=== PATIENT | male | born 1955 | race Caucasian/White ===

== ENCOUNTER 2023-02-09 11:23 | Outpatient (CLI) | payer MEDICARE, SELFPAY ==
--- NOTE | 2023-02-09 11:33 | MR_ITS ---
WS: [id number] MRI HEAD WITH CONTRAST TECHNIQUE: Sagittal T1, T2 axial, T2 axial FLAIR, axial susceptibility weighted imaging, axial diffus ion weighted images, and coronal T2 images were obtained. Pre and post-T1 axial and post T1 coronal i mages. ADC and FSPGR images. CLINICAL INFORMATION: R EYE ISCHEMIC OPTIC NEUROPATHY COMPARISON: None. FINDINGS: No evidence of restricted diffusion to suggest acute ischemia. Ventricular system and basal cisterns are patent. Minimal small vessel changes. Mild parenchymal volume loss. Normal posterior fossa. Dalila l vascular flow voids at the skull base. No evidence of mass or mass effect. Paranasal sinuses are we ll aerated. Mucosal thickening with inspissated secretions in the LEFT maxillary sinus. Mastoid air c ells are well aerated. Normal posterior nasopharynx. Normal optic chiasm and pituitary infundibulum. Mild to moderate symmetric atrophy temporal lobes and hippocampal formations. No evidence of optic nerve edema or enhancing optic neuritis. No abnormal gadolinium enhancement. Incidental benign enhancing venous angioma in the RIGHT parietal lobe. Normal enhancing dural venous sinuses. IMPRESSION: 1. No evidence of restricted diffusion to suggest acute ischemia. 2. No evidence of optic nerve edema or optic neuritis. 3. Minimal small vessel changes. Mild parenchymal volume loss. 4. Inspissated secretions in the LEFT maxillary sinus. 5. Benign enhancing venous angioma in the RIGHT parietal lobe. 6. Normal optic chiasm and pituitary infundibulum. 7. No other suspicious findings.
--- NOTE | 2023-02-09 11:33 | USCV_ITS ---
Grover Sina Age: 67 Gender: M : 1955 Exam Date: 02/09/2023 11:59 Ordering Phys: Yulia Arango Technologist: Tawana Calvillo Exam Location: [facility] – [place] Indication: Visual Disturbance Risk Factors: Unknown Previous Vascular Surgery: None Right Brachial BP: / Left Brachial BP: / Right Left Velocity (cm/s) Spectral Plaque Velocity (cm/s) Spectral Plaque Syst/Diast Broadening Syst/Diast Broadening 105.80/22.10 Prox CCA 101.20/ 27.60 129.00/28.70 Mid CCA 92.00 / 14.50 125.70/26.50 Hetro Distal CCA 114.40/ 15.80 Hetro 118.00/27.60 Hetro Prox ICA 85.40 / 30.20 Hetro 98.10/ 26.50 Mid ICA 89.40 / 18.40 88.20/ 28.70 Distal ICA 68.40 / 13.10 94.80 ECA 148.60 0.91 ICA/CCA 0.97 Antegrade Vertebral Antegrade 35.00/ 14.80 cm/s 44.70/ 18.40 cm/s Tri Subclavian Bi 151.2 197.9 0 0 CONCLUSIONS Right ICA stenosis <50%. Moderate calcified atheromatous plaque right carotid bulb/ICA. Left ICA stenosis 50-69%. Severe calcified atheromatous plaque left carotid bulb/ICA. Left ICA plaquea appears mobile. Normal antegrade Doppler flow noted in the right vertebral artery. Normal antegrade Doppler flow noted in the left vertebral artery. Gaurav Cruz MD (Electronically Signed) Final Date: 09 February 2023 16:47 S
[2023-02-09] MEDS: gadobenate dimeglumine 20 mL vial IV (14:00)
== END 2023-02-09 11:24 | disposition home or self-care (01) ==
PROVIDERS: PCP Physician Assistant; Visit Provider Physician Assistant
DX: H47.011 Ischemic optic neuropathy, right eye (principal); Q28.3 Other malformations of cerebral vessels; I65.23 Occlusion and stenosis of bilateral carotid arteries; H53.9 Unspecified visual disturbance
CPT/HCPCS: 70553; 93880; A9577

== ENCOUNTER 2024-04-23 14:04 | Inpatient (IN) | payer MEDICARE, SELFPAY ==
[2024-04-23] VITALS (8 sets, daily range): BP systolic 113–143; BP diastolic 62–72; PULSE 65–76; RESP 15–28; TEMP 36.9–37.2; O2SAT 72–92; BMI 38.2
--- NOTE | 2024-04-23 14:05 | XR_ITS ---
WS: [id number] Portable AP upright chest, 04/23/2024 Clinical Data: sob Comparison: None. Findings: There is a patchy opacity in the right upper lobe which could represent acute pneumonia. Th ere may be an opacity in the left lower lobe which could also represent pneumonia and/or atelectasis. The patient's breathing does obscure minimal detail. The heart size is at the upper limits of normal . No pneumothorax is seen. The pulmonary vascularity is not increased. There are no nodules or masses . XR/XR chest 1V portable [id number] Impression: Patchy opacities in the right upper lobe and probably left lower lobe which cou ld represent acute pneumonia.
--- NOTE | 2024-04-23 14:14 | ECG_ITS ---
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
[2024-04-23 14:37] LABS: Basophils # 0.1 10^3/uL (0.0-0.1); Basophils % 0.4 %; Eosinophils # 0.1 10^3/uL (0.0-0.8); Eosinophils % 0.4 %; Hematocrit 42.6 % (37-53); Lymphocytes # 1.8 10^3/uL (0.8-4.8); Lymphocytes % 11.9 %; Mean Corpuscular HGB Conc 31.9 g/dL (30-55); Mean Corpuscular Hemoglobin 30.7 pg (27-33); Mean Corpuscular Volume 96.2 fl (82-101); Mean Platelet Volume 10.3 fL (7.4-10.4); Monocytes # 1.5 10^3/uL (0.2-0.9); Monocytes % 9.4 %; Neutrophils # 11.91 10^3/uL (1.8-7.7); Neutrophils % 77.1 %; Nucleated Red Blood Cells # 0.1 /100WBC; Nucleated Red Blood Cells % 0.7 %; Platelet Count 355 10^3/cmm (157-399); Red Blood Count 4.43 10^6/uL (3.85-5.65); Red Cell Distribution Width 14.9 % (12.1-15.1); White Blood Count 15.45 10^3/uL (3.29-11.43)
[2024-04-23 14:38] LABS: ABG PCO2 51.2 mmHg (35-45); ABG PH Result 7.38 (7.35-7.45); Alveolar-Arterial Oxygen Gradi 20.8 mmHg (5-10); Arterial Blood Gas Hematocrit 43.6 % (42-52); Base Excess ABG 4.1 mmol/L (-2.0-2.0); Blood Gas Allen Test Pos; Blood Gas Operator Identificat glc; Blood Gas Sample Site Radial, right; Blood Gas Sample Type Arterial; Carboxyhemoglobin 2.4 %THgb (0.4-20.1); HCO3 ABG 30.4 mmol/L (22-26); Ionized Calcium Level - ABG 1.1 mmol/L (1.1-1.4); Methemoglobin 1.1 % (0.4-1.5); Oxygen Device NC; Oxygen Saturation ABG 90.1; PO2 ABG 63.2 mmHg (80.0-100.0); PO2 FiO2 Ratio Arterial Blood 158; Potassium Level - ABG 3.7 mmol/L (3.5-5.0); Total Hemoglobin 14.2 g/dL (14-18)
--- NOTE | 2024-04-23 14:44 | ED_ITS ---
HPI - SOB/Dyspnea 2 General: Chief Complaint: Shortness of Breath/Dyspnea Stated Complaint: sob,weak Time Seen by Provider: 04/23/24 14:23 Source: patient Mode of arrival: ambulatory Limitations: no limitations History of Present Illness: HPI Narrative: This patient was transported by private vehicle to the emergency department after being referred from an outpatient clinic. The patient states he has had progressive short of breath over the past many months but seemingly worse over the past few days. He has had a cough which seems to be unchanged from his prior cough. No known fevers or chills. No known exposure to infectious disease. Uses an albuterol inhaler on occasion but states it does not seem to help him much so he does not use it very often. He states he does not sleep well states he is never a slept well and does not attribute to any acute change in his respiratory issues. He states he cannot hardly do much in the way of activity without getting short of breath. He otherwise taking his all his other prescribed medications faithfully. He states he has been told he has asthma in the past. He does not currently smoke tobacco. No recent travel. No history of congestive heart failure or coronary artery disease that he is aware. States he has been decreasing his food intake recently in an attempt to lose weight. He has not had any seasonal immunizations this year. MD elicited complaint: shortness of breath and cough Associated symptoms: Deny abdominal pain, chest pain, extremity pain, fever(s), lightheadedness, nausea, palpitations, syncope or vomiting Related Data Home Medications Medication Instructions Recorded Confirmed acetaminophen 325 mg tablet 650 mg PO QID PRN Pain 04/23/24 04/23/24 (Tylenol) albuterol sulfate 90 mcg/actuation See Rx Instructions .Route .COMPLEX 04/23/24 04/23/24 aerosol inhaler allopurinol 100 mg tablet 200 mg PO DAILY 04/23/24 04/23/24 amlodipine 10 mg tablet 10 mg PO DAILY 04/23/24 04/23/24 aspirin 81 mg tablet,delayed 81 mg PO DAILY 04/23/24 04/23/24 release (Lola Low Dose Aspirin) atorvastatin 40 mg tablet 40 mg PO QPM 04/23/24 04/23/24 fenofibrate nanocrystallized 145 145 mg PO DAILY 04/23/24 04/23/24 mg tablet losartan 100 mg tablet 100 mg PO DAILY 04/23/24 04/23/24 metoprolol tartrate 50 mg tablet 25 mg PO BIDWM 04/23/24 04/23/24 nitroglycerin 0.4 mg sublingual See Rx Instructions .Route .COMPLEX 04/23/24 04/23/24 tablet pioglitazone 30 mg tablet 30 mg PO DAILY 04/23/24 04/23/24 Allergies Allergy/AdvReac Type Severity Reaction Status Date / Time No Known Allergies Allergy Verified 04/23/24 14:35 Review of Systems 2 Const: Denies: fever(s), chills or body aches Eyes: Denies: change in vision ENMT: Denies: throat pain, odynophagia, nasal discharge or nasal congestion Card: Denies: chest pain, palpitations, lightheadedness, syncope or pre- syncope Resp: Reports: dyspnea and non-productive cough GI: Denies: abdominal pain, nausea, vomiting or diarrhea : Denies: flank pain, difficulty urinating, dysuria or urinary frequency Musc: Denies: neck pain, back pain, extremity pain or extremity swelling Skin/Breast: Denies: rash, pruritus or erythema Neuro: Denies: headache(s), numbness in extremities or weakness in extremities Psych: Denies: anxiety Physical Exam 2 Narrative: EXAM NARRATIVE: Patient is awake and alert is able to converse in complete sentences but somewhat dyspneic with prolonged conversation. Const: COMMON NORMALS: patient oriented x3 and alert GENERAL APPEARANCE: c ooperative NUTRITIONAL APPEARANCE: obese HENMT: COMMON NORMALS: Normal nasal mucous membranes and turbinates present, moist oral mucous membranes and oropharynx normal FACE & SINUS: face symmetric NOSE: Normal nasal mucous membranes and turbinates present Eye: COMMON NORMALS: Equal, round and reactive pupils present, EOMs intact bilaterally and conjunctivae normal CONJUNCTIVA: Yes conjunctivae normal P UPIL: Yes Equal, round and reactive pupils present Neck/C-Spine: COMMON NORMALS: full ROM, supple, no JVD and No carotid bruits Chest: COMMONS NORMALS: normal inspection of the chest and normal palpation of entire chest wall Resp: COMMON NORMALS: No retractions and No use of accessory muscles A USCULTATION: crackles and diminished lung sounds Cardio: COMMON NORMALS: no JVD, regular rhythm, No murmurs present (Cardio) and Peripheral pulses 2+ throughout RHYTHM: regular rhythm PERIPHERAL PULSES: Peripheral pulses 2+ throughout GI: COMMON NORMALS: Normal to inspection, nondistended, normoactive bowel sounds present and Soft to palpation INSPECTION: Yes central obesity P ALPATION: Yes Soft to palpation : COMMON NORMALS: Yes no CVA tenderness BLADDER/KIDNEY EXAM: Yes no CVA tenderness Back/Pelvis: COMMON NORMALS: no CVA tenderness, thoracic and lumbar spine normal to inspection, no thoracic nor lumbar tenderness and thoraco-lumbar ROM normal Extremity: COMMON NORMALS: normal to inspection, full ROM, capillary refill normal, no calf tenderness and no pedal edema Neuro: COMMON NORMALS: patient oriented x3, moves all extremities, no focal motor deficits and no sensory deficits noted SENSORIUM/ORIENTATION: Yes alert Psych: COMMON NORMALS: mental status grossly normal Skin: COMMON NORMALS: no rashes or lesions noted, turgor normal and no jaundice GENERAL SKIN EXAM: no rashes or lesions noted and turgor normal Course 2 Reevaluation(s): Reevaluation #1: Patient on presentation was noted to have a pulse ox in the 70s which corrected to the low 90s with supplemental oxygen. Subsequent ABG revealed a pH of 7. 3 8 with a pCO2 of 51 and pO2 of 63 on approximately 35 to 40% FiO2 by nasal cannula. Carboxyhemoglobin level was 2.4%. Time: 14:50 Reevaluation #2: Patient's noted to have an elevated BNP. Also has evidence of elevated BUN/creatinine ratio but we do not have a baseline for his creatinine as we do not know the extent of his presumed GISSELLE. His low magnesium level will also be repleted Time: 15:32 Consultations: Consultation #1: Discussed with Dr. Sargent who agreed to admit patient Time: 15:10 Vital Signs: Vital signs: Vital Signs Temperature 98.5 F 04/23/24 14:23 Pulse Rate 65 04/23/24 15:03 Respiratory Rate 18 04/23/24 15:03 Blood Pressure 113/70 04/23/24 14:23 Pulse Oximetry 91 04/23/24 15:03 Oxygen Delivery Me thod Nasal Cannula 04/23/24 15:03 Oxygen Flow Rate 5 04/23/24 15:03 MDM - SOB/Dyspnea Medical Decision Making Patient presented as noted in history of present illness. Patient is currently oxygen requiring with chest x-ray showing right upper and right lower lobe infiltrates. No known history of coronary disease or congestive heart failure but does have a history of asthma given his current clinical presentation is strongly suggest community-acquired pneumonia but obviously as part of our differential would include occult CHF and possible ACS is initial EKG is reassuring. But we are including the usual ancillary studies to ensure that there is no other etiologies to his current presentation and oxygen requirement. Hospitalist have agreed to admit the patient to the hospital and the patient is agreeable to that plan of care. He is being given treatment for community- acquired pneumonia to include loading dose of antibiotics, steroids, albuterol and ipratropium breathing treatments. As his workup ensued it was noted that the had an elevation in his BUN/creatinine ratio consistent with possible GISSELLE although we do not know baseline creatinine for this patient. He also has an elevation in BNP as well as a slight elevation in his initial troponin without dynamic EKG changes these will obviously need to be trended to ensure that there is no evidence of acute myocardial injury. The numbers may be elevated on his biomarkers due to his GISSELLE as well although his BNP is more indicative of possible pulmonary congestion. Medical Records Patient does not have any records within the system. Lab Data I reviewed the patient's lab results. 04/23/24 14:27 04/23/24 14:27 Labs/Radiology: Radiology Impressions Chest X-Ray 04/23/24 14:05 Impression: Patchy opacities in the right upper lobe and probably left lower lobe which could represent acute pneumonia. Chest CT 04/23/24 15:07 IMPRESSION: 1. Multi lobar pneumonia. Most extensive pulmonary opacification and pneumonia is in the RIGHT upper lobe. Pneumonia continues into a portion of the RIGHT lower lobe with a few areas of scattered opacifications throughout the LEFT lung. Most consistent with pneumonia. Consider aspiration pneumonia. 2. Single subcarinal lymph node at 1.8 cm. The remaining lymph nodes are normal. This may be a reactive lymph node. 3. Mild cardiomegaly. Laboratory Results WBC 15.45 10^3/uL (3.29-11.43) H 04/23/24 14: RBC 4.43 10^6/uL (3.85-5.65) 04/23/24 14: Hgb 13.60 g/dL (11.27-16.99) 04/23/24 14: Hct 42.6 % (37-53) 04/23/24 14: MCV 96.2 fl (82-101) 04/23/24 14: MCH 30.7 pg (27-33) 04/23/24 14: MCHC 31.9 g/dL (30-55) 04/23/24 14: RDW 14.9 % (12.1-15.1) 04/23/24 14: Plt Count 355 10^3/cmm (157-399) 04/23/24 14: MPV 10.3 fL (7.4-10.4) 04/23/24 14: Neut % (Auto) 77.1 % 04/23/24 14: Lymph % (Auto) 11.9 % 04/23/24 14: [place] % (Auto) 9.4 % 04/23/24 14: Eos % (Auto) 0.4 % 04/23/24 14: Baso % (Auto) 0.4 % 04/23/24 14: Neut # (Auto) 11.91 10^3/uL (1.8-7.7) H 04/23/24 14: Lymph # (Auto) 1.8 10^3/uL (0.8-4.8) 04/23/24 14: [place] # (Auto) 1.5 10^3/uL (0.2-0.9) H 04/23/24 14: Eos # (Auto) 0.1 10^3/uL (0.0-0.8) 04/23/24 14: Baso # (Auto) 0.1 10^3/uL (0.0-0.1) 04/23/24 14: Nucleated RBC % (auto) 0.7 % 04/23/24 14: Nucleated RBCs # 0.1 /100WBC 04/23/24 14: Specimen Type Arterial 04/23/24 14:25 Sample Site Radial, right 04/23/24 14:25 ABG pH 7.38 (7.35-7.45) 04/23/24 14: ABG pCO2 51.2 mmHg (35-45) H 04/23/24 14: ABG pO2 63.2 mmHg (80.0-100.0) L 04/23/24 14:25 ABG PO2/FiO2 Ratio 158 04/23/24 14:25 ABG HCO3 30.4 mmol/L (22-26) H 04/23/24 14:25 ABG O2 Saturation 90.1 04/23/24 14:25 ABG Base Excess 4.1 mmol/L (-2.0-2.0) H 04/23/24 14:25 Khalif Test Pos 04/23/24 14:25 A-a O2 Gradient 20.8 mmHg (5-10) H 04/23/24 14:25 Hematocrit 43.6 % (42-52) 04/23/24 14:25 Hgb O2 Saturation 87.0 % (95-100) L 04/23/24 14:25 Carboxyhemoglobin 2.4 %THgb (0.4-20.1) 04/23/24 14:25 Methemoglobin 1.1 % (0.4-1.5) 04/23/24 14:25 Total Hemoglobin 14.2 g/dL (14-18) 04/23/24 14:25 Sodium 139.0 mmol/L (131-143) 04/23/24 14:25 Potassium 3.7 mmol/L (3.5-5.0) 04/23/24 14:25 Glucose 142.0 mg/dL (70-115) H 04/23/24 14:25 Ionized Calcium 1.1 mmol/L (1.1-1.4) 04/23/24 14:25 O2 Delivery Device Nc 04/23/24 14:25 O2 Liters/Min 5.0 % 04/23/24 14:25 FiO2 40.0 % 04/23/24 14:25 Warp Tying Machine Tender ID glc 04/23/24 14:25 Sodium 138 mmol/L (136-145) 04/23/24 14:27 Potassium 4.3 mmol/L (3.5-5.1) 04/23/24 14:27 Chloride 97 mmol/L (98-107) L 04/23/24 14:27 Carbon Dioxide 27 mmol/L (22-29) 04/23/24 14:27 Anion Gap 18.3 (5-19) 04/23/24 14:27 BUN 48 mg/dL (8-23) H 04/23/24 14:27 Creatinine 2.2 mg/dL (0.7-1.2) H 04/23/24 14:27 GFR Calculation 29.8 mL/min (90-130) L 04/23/24 14:27 Glucose 145 mg/dL (65-115) H 04/23/24 14:27 Calculated Osmolality 301 mOsm/kg (285-295) H 04/23/24 14:27 Calcium 8.4 mg/dL (8.5-10.5) L 04/23/24 14:27 Magnesium 1.5 mg/dL (1.7-2.3) L 04/23/24 14:27 Total Bilirubin 0.7 mg/dL (0.15-1.2) 04/23/24 14: AST 17 U/L (0-40) 04/23/24 14: ALT 19 U/L (0-41) 04/23/24 14: Alkaline Phosphatase 58 U/L (40-130) 04/23/24 14:27 Troponin T Baseline 60 ng/L (0-15) H 04/23/24 14:27 NT-Pro-B Natriuret Pep 4275 pg/mL (0-125) H 04/23/24 14:27 Total Protein 6.5 g/dL (6.6-8.7) L 04/23/24 14:27 Albumin 3.5 g/dL (3.5-5.2) 04/23/24 14:27 Globulin 3.0 g/dL (1.3-4.6) 04/23/24 14: TSH 1.99 uIU/mL (0.27-4.20) 04/23/24 14:27 All radiology interpretation(s) finalized by discharge EKG Data EKG 1: I personally reviewed and interpreted this EKG as follows: Interpretation: Contemporaneous review of resting EKG reveals ventricular rate of 67 bpm. S1 sinus rhythm. Normal MI interval, QRS duration, corrected QT interval. Normal axis. No acute ST-T wave changes noted at this time. 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
[2024-04-23] MEDS: AZITHROMYCIN ADD-Vantage 500 MG in 0.9% NaCl ADD-Vantage 250 ML 250 MG IV (14:58)
[2024-04-23] MEDS: cefTRIAXone 2,000 mg SDV 2000 MG IVP (14:59)
[2024-04-23] MEDS: methylPREDNISolone sod succ 125 mg/2 mL INJ 80 MG IVP (14:59)
[2024-04-23] MEDS: ipratropium-albuterol 3 mL Neb INHALATION ×2 (15:00→20:13)
--- NOTE | 2024-04-23 15:07 | CT_ITS ---
WS: [id number] CT chest wo con [id number] HISTORY: pneumonia TECHNIQUE: Axial imaging performed through the thorax. Coronal and sagittal reformats are submitted. All CT scans at [facility] use at least one of these dose optimization techniques: automated exposure control; mA and/or kV adjustment per patient size (includes targeted exams where dose is mat ched to clinical indication); or iterative reconstruction. CONTRAST: Omnipaque 350; 100 mL IV. DLP: 709.12 mGy.cm COMPARISON: Chest radiograph 04/23/2024 Lungs and central airway: Heterogeneous dense and subsolid consolidation predominantly in the RIGHT u pper lobe. Mild bulging of the fissures. Opacification extends into the RIGHT lower lobe and does spa re the RIGHT middle lobe. Linear opacifications at the LEFT lung base probably atelectasis or more lenz btle areas of pneumonia. There are few very subtle hazy attenuation surrounds the LEFT upper lobe. Pleura: Normal. No pleural effusion. Heart and pericardium: Heart is enlarged. Mediastinum and abebe: No definite adenopathy. There is a single subcarinal lymph node measuring 1.8 c m. There are several lymph nodes but they have a normal shape and fatty hilum. Vessels: Normal size aortic and pulmonary artery. No coronary artery calcifications. Chest wall and lower neck: No soft tissue masses. Upper abdomen: No 16 mm LEFT adrenal mass. Osseous structures: No destructive process. CT/CT chest wo con [id number] IMPRESSION: 1. Multi lobar pneumonia. Most extensive pulmonary opacification and pneumonia is in the RIGHT upper lobe. Pneumonia continues into a portion of the RIGHT lo wer lobe with a few areas of scattered opacifications throughout the LEFT lung. Most consistent with pneumonia. Consider aspiration pneumonia. 2. Single subcarinal lymph node at 1.8 cm. The remaining lymph nodes are willa l. This may be a reactive lymph node. 3. Mild cardiomegaly.
[2024-04-23 15:13] LABS: Albumin Level 3.5 g/dL (3.5-5.2); Alkaline Phosphatase 58 U/L (40-130); Anion Gap 18.3 (5-19); Aspartate Amino Transferase 17 U/L (0-40); Blood Urea Nitrogen 48 mg/dL (8-23); Calcium 8.4 mg/dL (8.5-10.5); Carbon Dioxide 27 mmol/L (22-29); Chloride 97 mmol/L (98-107); Glomerular Filtration Rate 29.8 mL/min (90-130); Glucose 145 mg/dL (65-115); Magnesium 1.5 mg/dL (1.7-2.3); NT Pro B Type Natriuretic Pept 4275 pg/mL (0-125); Osmolality Calculated 301 mOsm/kg (285-295); Potassium 4.3 mmol/L (3.5-5.1); Sodium 138 mmol/L (136-145); Thyroid Stimulating Hormone 1.99 uIU/mL (0.27-4.20); Total Bilirubin 0.7 mg/dL (0.15-1.2); Total Protein 6.5 g/dL (6.6-8.7)
[2024-04-23 15:24] LABS: Alanine Aminotransferase 19 U/L (0-41)
[2024-04-23 15:28] LABS: Troponin(5th) Baseline 60 ng/L (0-15)
--- NOTE | 2024-04-23 16:06 | ECG_ITS ---
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
[2024-04-23] MEDS: magnesium oxide 400 mg tablet 800 MG PO (16:16)
[2024-04-23 16:23] LABS: Lactic Sepsis W/Reflex 1.1 mmol/L (0.5-2.2)
--- NOTE | 2024-04-23 16:24 | USCV_ITS ---
Sina Ness Age: 69 Gender: M : 1955 Exam Date: 04/23/2024 17:31 Ordering Phys: Caio Nassar MD Technologist: [place] [facility] [place]: cp,sob BP: 143 / 69 HR: 71 Rhythm: Sinus Technical Quality: Adequate MEASUREMENTS (Male / Female) Normal Values 2D ECHO LVOT Diameter 2.1 cm LV Ejection Fraction MOD 4C 65.8 % LV Ejection Fraction MOD 2C 63.5 % LV Ejection Fraction 2C AL 63.3 % LA Diameter 4.0 cm RA Systolic Volume 4C AL 168.9 ml RA Systolic Volume 4C MOD 161.3 ml LA Sys Volume AL 88.3 cm cubed LA Sys Volume Index AL 36.2 cm cubed/m squared Aorta at Sinotubular Diameter 2.3 cm M-MODE LA Ao Ratio MM 1.8 AV Cusp Separation MM 2.0 cm DOPPLER AV Peak Velocity 190.0 cm/s LVOT Peak Velocity 144.0 cm/s AV Area Cont Eq vti 2.1 cm squared AV Area Cont Eq pk 2.7 cm squared MV Peak Velocity 112.0 cm/s MV Area PHT 3.6 cm squared Mitral E to A Ratio 1.1 TV Peak Velocity 254.3 cm/s TR Peak Velocity 269.5 cm/s TR Peak Gradient 29.1 mmHg TR Mean Velocity 187.0 cm/s TR Mean Gradient 15.0 mmHg TR Velocity Time Integral 58.5 cm TV Peak E Velocity 95.0 cm/s PV Peak Velocity 133.5 cm/s FINDINGS Left Ventricle Normal left ventricular size and systolic function, EF 63% . No regional wall motion abnormalities. Grade II/IV diastolic dysfunction, moderately elevated filling pressures. Right Ventricle The right ventricle is normal in size and function. Right Atrium Mildly increased right atrial size. Left Atrium Mildly increased left atrial size. Mitral Valve Trace mitral valve regurgitation. Aortic Valve Thickened aortic valve. Tricuspid Valve Trace tricuspid valve regurgitation. Estimated pulmonary artery peak systolic pressure 29 mmHg Pulmonic Valve No gross abnormalities noted Pericardium No pericardial effusion. Aorta Normal ascending aorta dimension. IVC The inferior vena cava appears normal. CONCLUSIONS Normal left ventricular size and systolic function, EF 63% . No regional wall motion abnormalities. Grade II/IV diastolic dysfunction, moderately elevated filling pressures. Mild biatrial enlargementTrace mitral valve regurgitation. Thickened aortic valve. Trace tricuspid valve regurgitation. Estimated pulmonary artery peak systolic pressure 29 mmHg There is no pericardial effusion. There are no intracardiac masses. Compared to the study from 07/19/2016, there may not be significant change. Dr Mae Barrett MD [facility] (Electronically Signed) Final Date: 23 April 2024 21:19 S
--- NOTE | 2024-04-23 16:24 | P.HP_ITS ---
Providers/Chief Complaint 2 Admitting Physician: Caio Nassar MD Primary Care Provider: Yulia Arango Chief Complaint: sob,weak History of Present Illness Sina Ness is a 69 year old male with past medical history of hypertension, hyperlipidemia, type 2 diabetes mellitus, carotid artery stenosis who has not followed up with a physician for quite a while presents to the ER with his spouse today because of worsening difficulty in breathing which has been progressively getting worse over last 6 months. Today patient had gone with her spouse to visit her primary care provider where he seemed very sick and he was advised to present to the ER. As per the spouse at home sometimes patient's oxygen saturations dropped down to 50s. In the ER he was found to have a saturation of 70% on room air and was placed on nasal cannula. Examination patient is laying comfortably in bed with some difficulty in breathing on tunnelization requiring up to 6 L of oxygen to maintain saturation in the high 80s. He denies any chest pain. Complains of difficulty in breathing getting worse on exertion and laying down flat. Denies any history of sleep apnea though he has never been tested. Denies any fever, cough worse than usual, chest pain diarrhea, dysuria, sick contacts. Review of Systems 2 General: Reports: 10 or more systems reviewed and unremarkable except in HPI and below Const: Denies: fever(s), chills, body aches, change in appetite, change in weight, malaise, night sweats, diaphoresis, change in sleep pattern, daytime sleepiness or snoring Eyes: Denies: change in vision, blurry vision, photophobia, eye discomfort or eye discharge ENMT: Denies: throat pain, enlarged tonsils, hoarseness, mouth pain, oral sores, dry mouth, tinnitus, nasal congestion or post nasal drip Card: Denies: chest pain, palpitations, irregular heart rhythm, edema, swelling of feet/ankles, lightheadedness, syncope, pre-syncope, dyspnea on exertion, orthopnea, leg pain with exertion or acrocyanosis Resp: Denies: dyspnea, productive cough, non-productive cough, wheezing, stridor, pain on inspiration, change in phlegm color, hemoptysis or chest congestion GI: Denies: abdominal pain, nausea, vomiting, hematemesis, coffee ground emesis, dysphagia, heartburn, diarrhea, constipation, bloating, GI cramping, change in bowel habits, pain on defecation, hematochezia or melena : Denies: flank pain, difficulty urinating, dysuria, urinary frequency, urinary urgency, urinary hesitancy, urinary dribbling, difficulty starting urination, change in urine stream, nocturia or hematuria Musc: Denies: neck pain, back pain, extremity pain, joint pain, joint swelling, joint redness, joint stiffness or limited range of motion Neuro: Denies: headache(s), numbness in extremities, weakness in extremities, sensory changes, lack of coordination, difficulty walking, frequent falls, dizziness, vertigo, confusion, Slurred speech present, difficulty communicating thoughts or seizure-like activity Psych: Denies: anxiety, depression, mood swings, panic attacks, hopelessness or irritability Endo: Denies: polyuria, polydipsia, tired all the time, cold intolerance, excessive sweating, flushing or heat intolerance Jeovanny/Lymph: Denies: easy bruising or easy bleeding All/Imm: Denies: tongue swelling, facial swelling or acute wheezing Medications/Allergies Home Medications Medication Instructions Recorded Confirmed Last Taken Type acetaminophen 325 mg tablet 650 mg PO QID PRN Pain 04/23/24 04/23/24 04/23/24 History (Tylenol) albuterol sulfate 90 mcg/actuation See Rx Instructions .Route .COMPLEX 04/23/24 04/23/24 Unknown History aerosol inhaler allopurinol 100 mg tablet 200 mg PO DAILY 04/23/24 04/23/24 04/23/24 History amlodipine 10 mg tablet 10 mg PO DAILY 04/23/24 04/23/24 04/23/24 History aspirin 81 mg tablet,delayed 81 mg PO DAILY 04/23/24 04/23/24 04/23/24 History release (Lola Low Dose Aspirin) atorvastatin 40 mg tablet 40 mg PO QPM 04/23/24 04/23/24 04/22/24 History fenofibrate nanocrystallized 145 145 mg PO DAILY 04/23/24 04/23/24 04/23/24 History mg tablet losartan 100 mg tablet 100 mg PO DAILY 04/23/24 04/23/24 04/23/24 History metoprolol tartrate 50 mg tablet 25 mg PO BIDWM 11/25/24 11/25/24 11/25/24 History nitroglycerin 0.4 mg sublingual See Rx Instructions .Route .COMPLEX 04/23/24 04/23/24 Unknown History tablet pioglitazone 30 mg tablet 30 mg PO DAILY 04/23/24 04/23/24 04/23/24 History Allergies Allergy/AdvReac Type Severity Reaction Status Date / Time No Known Allergies Allergy Verified 04/23/24 14:35 PFSH Acute 2 PFSH: Medical History (Updated 04/23/24 @ 17:51 by Caio Nsasar MD) Obesity HLD (hyperlipidemia) Type 2 diabetes mellitus HTN (hypertension) Carotid artery occlusion Vitals/I&O/Wt Last Vital Signs Temp 98.5 F 04/23/24 14:23 Pulse 75 04/23/24 16:18 Resp 16 04/23/24 16:18 BP 119/64 04/23/24 16:18 Pulse Ox 90 04/23/24 16:18 O2 Del Method Nasal Cannula 04/23/24 16:18 O2 Flow Rate 6 04/23/24 16:18 Physical Exam 2 Narrative: General: No acute distress, AO x3, Sick appearing, morbidly obese HEENT: PERRLA, pupils bilaterally equal and reactive Chest: Bilateral bronchial breath sounds all over lung weldon occasional rhonchi, coarse crackles present all over lung weldon right more than left, lower lobe more than upper lobe CVS: S1-S2 regular, no murmurs, no tachycardia, no gallops, no rubs Abdomen: Soft, nontender, distended, no organomegaly, bowel sounds present Neuro: No focal deficits, no facial deformity, AO x3, power 5/5 in all limbs Data 04/23/24 14:27 04/23/24 14:27 Micro: Microbiology 04/23/24 15:36 Blood Culture - Preliminary Blood SPECIMEN COLLECTED A&P Assessment and plan (1) Respiratory failure: (2) Pneumonia: (3) Renal dysfunction: (4) HTN (hypertension): (5) Type 2 diabetes mellitus: (6) Obesity: (7) HLD (hyperlipidemia): (8) Carotid artery occlusion: Plan 69-year-old gentleman with no significant respiratory history presented to the ER with hypoxic respiratory failure due to shortness of breath which has been progressively getting worse over last 6 months though patient has not followed up with any physician in a long time. Acute hypoxic respiratory failure: Most likely in setting of pneumonia with concerns for obstructive sleep apnea and COPD. CHF cannot be ruled out. Check procalcitonin, sputum culture, urine Legionella, bacterial antigen, respiratory viral panel, MRSA swab. Check D-dimer. For now as patient has GISSELLE we will plan for CT chest without contrast. Oxygen supplementation keeping saturation over 90%. Aggressive pulmonary toilet with I-S and Acapella. DuoNeb every 6 hour, Pulmicort twice daily. Speech evaluation. Keep n.p.o. for now with concern for possible aspiration pneumonitis as per examination. Check ABG. Empirically start on IV Zosyn and IV azithromycin for atypical coverage. If MRSA swab is positive will add linezolid. Check Echocardiogram. GISSELLE versus CKD: No labs present in the system since 2017 when renal functions were normal. Medical reconciliation done for nephrotoxic drugs. Hold off on losartan. Ct abd w/o contrast to r/o obs nephropathy Check renal functions daily. Check urine lites, urine creatinine, urine eosinophils. Type 2 diabetes mellitus: Check A1c. Insulin sliding scale. Hold off on OHA's. Hypertension: Goal blood pressure less than 140/90 mmHg. Continue with home dose of metoprolol, amlodipine. Holding off on losartan. Will uptitrate as for goal blood pressure. History of carotid artery stenosis: Check Dopplers. Continue with aspirin, statin. CODE STATUS: Discussed in detail with the patient with spouse at bedside. Spouse will be DPOA. Patient does not want any aggressive resuscitation. DNR/DNI. NPO. Protonix for PUD prophylaxis Heparin 5000 Q12 hourly for DVT prophylaxis. Attestations 2 Medical Necessity Statement*: Admission for more than 2 midnights for management of acute hypoxic respiratory failure in setting of pneumonia, renal dysfunction Diagnoses Respiratory failure J96.90 Pneumonia J18.9 Renal dysfunction N28.9 HTN (hypertension) I10 Type 2 diabetes mellitus E11.9 Obesity E66.9 HLD (hyperlipidemia) E78.5 Carotid artery occlusion I65.29
[2024-04-23 16:48] LABS: Troponin 5 2HR 57.13 ng/L (0-15); Troponin 5 2HR Delta -2.87 ABS# (0-10)
--- NOTE | 2024-04-23 16:52 | USCV_ITS ---
Grover Sina Age: 69 Gender: M : 1955 Exam Date: 04/23/2024 17:07 Ordering Phys: Caio Nassar MD Technologist: CT Exam Location: [facility] [place] Indication: Risk Factors: Previous Vascular Surgery: Right Brachial BP: / Left Brachial BP: / Right Left Velocity (cm/s) Spectral Plaque Velocity (cm/s) Spectral Plaque Syst/Diast Broadening Syst/Diast Broadening 143.80/33.20 Prox CCA 163.00/ 34.90 172.10/40.90 Mid CCA 152.90/ 34.10 177.00/30.60 Distal CCA 128.50/ 30.20 127.20/30.00 Prox ICA 196.30/ 40.30 118.60/29.00 Mid ICA 159.60/ 44.10 120.50/30.50 Distal ICA 138.90/ 41.20 152.50 ECA 169.20 0.70 ICA/CCA 1.50 Antegrade Vertebral Antegrade 47.10/ 9.30 cm/s 73.70/ 28.40 cm/s Tri Subclavian Tri 131.0 132.1 0 0 CONCLUSIONS Right ICA stenosis 50-69% at the lower end of the range. Moderate atheromatous plaque right carotid bulb/ICA. Left ICA stenosis 50-69% in the mid range. Moderate atheromatous plaque left carotid bulb/ICA. Normal antegrade Doppler flow noted in the right vertebral artery. Normal antegrade Doppler flow noted in the left vertebral artery. Gaurav Cruz MD (Electronically Signed) Final Date: 23 April 2024 19:35 S
[2024-04-23 16:58] LABS: Iron 37 ug/dL (59-158); Total Iron Binding Capacity 205 mcg/dl; Unsaturated Iron Binding 168 ug/dL (112-347)
[2024-04-23 17:05] LABS: D Dimer 1.33 ug/mLFEU (0-0.59)
[2024-04-23 17:07] LABS: Covid PCR NEGATIVE (Negative); Influenza A NEGATIVE (Negative); Influenza B NEGATIVE (Negative); Respiratory Syncytial Virus Ce NEGATIVE (Negative)
[2024-04-23 17:13] LABS: Procalcitonin 0.26 ng/mL (0-0.5); Vitamin B12 487 pg/mL (232-1245)
--- NOTE | 2024-04-23 17:49 | CTR_ITS ---
PROCEDURE INFORMATION: Exam: CT Abdomen And Pelvis Without Contrast Exam date and time: 04/23/2024 9:18 PM Age: 69 years old Clinical indication: Other: Renal dysfunction TECHNIQUE: Imaging protocol: Computed tomography of the abdomen and pelvis without contrast. Radiation optimization: All CT scans at this facility use at least one of these dose optimization techniques: automated exposure control; mA and/or kV adjustment per patient size (includes targeted exams where dose is matched to clinical indication); or iterative reconstruction. COMPARISON: CT chest wo con [id number] 04/23/2024 3:22 PM RADIATION DOSE METRICS: Total DLP (mGy-cm): 1200.43 FINDINGS: Lungs: Bibasilar right greater than left pneumonic infiltrates. Emphysematous changes. Heart: Cardiomegaly. Liver: Normal. No mass. Gallbladder and biliary ducts: Normal. No calcified stones. No ductal dilation. Pancreas: Normal. No ductal dilation. Spleen: Normal. No splenomegaly. Adrenal glands: Left adrenal 19 mm low-density nodule likely reflecting a benign adenoma. Kidneys and ureters: Right kidney probable subcentimeter proteinaceous cyst, series 2, image 46, consider correlation with ultrasound to confirm suspected cystic nature. Stomach and bowel: Diverticulosis without diverticulitis. Appendix: No evidence of appendicitis. Intraperitoneal space: Small omental fat containing hernia. Vasculature: Unremarkable. No abdominal aortic aneurysm. Lymph nodes: Unremarkable. No enlarged lymph nodes. Urinary bladder: Unremarkable as visualized. Reproductive: Unremarkable as visualized. Bones/joints: Chronic bilateral L5 pars articularis defects. Soft tissues: Unremarkable. CT/CT abdomen pelvis wo con [id number] IMPRESSION: 1. Negative for acute inflammatory process in the abdomen or pelvis. 2. Bibasilar right greater than left pneumonic infiltrates. 3. Emphysematous changes. 4. Cardiomegaly. 5. Right kidney probable subcentimeter proteinaceous cyst, series 2, image 46, consider correlation with ultrasound to confirm suspected cystic nature. 6. Diverticulosis without diverticulitis. 7. Chronic bilateral L5 pars articularis defects. 8. Small omental fat containing hernia. 9. Left adrenal 19 mm low-density nodule likely reflecting a benign adenoma. COMMENTS: 1. Consistent with the [employer]'s Incidental Findings Committee white paper (J Am Sola Radiol 2018): Any incidental renal lesion less than 1 cm or classified as too small to characterize, or any incidental cystic renal lesion characterized as simple-appearing, is likely benign. No follow-up imaging is recommended for these lesions per consensus recommendations based on imaging criteria. 2. Consistent with the [employer]'s Incidental Findings Committee white paper (J Am Sola Radiol 2017): For any incidental adrenal lesion greater than or equal to 1 cm but less than or equal to 4 cm classified in this report as benign, likely benign, or containing fat (including classification as an adenoma or myelolipoma), no follow-up imaging is recommended per consensus recommendations based on imaging criteria. Further lab evaluation could be pursued if warranted based on clinical findings.
[2024-04-23] MEDS: metoprolol tartrate 50 mg Tablet 25 MG PO (18:33)
[2024-04-23] MEDS: atorvastatin 40 mg Tablet PO (18:33)
[2024-04-23] MEDS: piperacillin-tazobactam 3.375 GM in sodium chloride 0.9% (plus) 50 ML IV (18:34)
[2024-04-23] MEDS: methylPREDNISolone sod succ 40 mg/mL INJ IVP (18:34)
[2024-04-23] MEDS: pantoprazole 40 mg SDV IVP (18:34)
[2024-04-23 18:50] LABS: Lactate Dehydrogenase 257 U/L (135-225)
[2024-04-23 19:23] LABS: Adenovirus Not Detected (NOT DETECT); Chlamydia Pneumoniae Not Detected (NOT DETECT); Coronavirus 229E,HKU1,NL63,OC4 Not Detected (NOT DETECT); Human Metapneumovirus Not Detected (NOT DETECT); Human Rhinovirus/Enterovirus Not Detected (NOT DETECT); Influenza A Not Detected (NOT DETECT); Influenza A H1 Not Detected (NOT DETECT); Influenza A H1-2009 Not Detected (NOT DETECT); Influenza A H3 Not Detected (NOT DETECT); Influenza B Not Detected (NOT DETECT); Mycoplasma Pneumoniae Not Detected (NOT DETECT); Parainfluenza Virus Type 1 Not Detected (NOT DETECT); Parainfluenza Virus Type 2 Not Detected (NOT DETECT); Parainfluenza Virus Type 3 Not Detected (NOT DETECT); Parainfluenza Virus Type 4 Not Detected (NOT DETECT); Respiratory Syncytial Virus A Not Detected (NOT DETECT); Respiratory Syncytial Virus B Not Detected (NOT DETECT); SARS-COV-2 Not Detected (NOT DETECT)
[2024-04-23 20:06] LABS: MRSA PCR OZH (swab) NOT DETECTED (Negative)
--- NOTE | 2024-04-23 20:06 | ECG_ITS ---
[facility]: 2024[facility]23 Pat Name: Sina Ness Department: Room: 270 Gender: Male Ent Consultant: : 1955 Requested By: Tristin Bragg Order Number: [id number] Sebas MD: Mae Barrett M.D. Measurements Intervals [place] Rate: 67 P: 37 AL: 163 QRS: 78 QRSD: 90 T: 70 QT: 381 QTc: 404 Interpretive Statements SINUS RHYTHM Compared to ECG 04/23/2024 16:35:41 Right-axis deviation no longer present Electronically Signed On 04-25-2024 19:40:45 MOTTLER OPERATOR by Mae Barrett M.D. [email or web address]
[2024-04-23] MEDS: budesonide 0.5 mg/2 mL Neb INHALATION (20:13)
[2024-04-23] MEDS: acetylcysteine 200 mg/mL MDV 10 mL 100 MG INHALATION (20:13)
[2024-04-23 20:40] LABS: Bilirubin Urine Negative (Negative); Blood Urine Negative (Negative); Glucose Urine UA Negative (Normal); Ketones Urine Negative (Negative); Leukocyte Esterase Urine Negative (Negative); Nitrate Urine Negative (Negative); Protein Urine 1+ (Negative); Specific Gravity, Urine 1.014 (1.005-1.030); Urine Appearance Turbid (CLEAR); Urine Color Yellow (Yellow)
[2024-04-23 20:42] LABS: Add Urine Microscopic? YES; Hyaline Casts Urine 9.51 /lpf; RBC Urine 0-2 /hpf (0-2); Squamous Epithelial Cell Urine 0-5 /hpf (0-5); WBC Urine 0-5 /hpf (0-5)
[2024-04-23 20:50] LABS: Potassium, Radom Urine 28 mmol/L; Urine Creatinine 148 mg/dL (39-259)
[2024-04-23 20:54] LABS: Urine Random Sodium 12 mmol/L
[2024-04-23 21:00] LABS: Bacteria Urine 2+ /hpf; UA Slide Review UA Slide Review Perf
[2024-04-23 21:01] LABS: Add Urine Culture? No; Amorphous Sediment Urine 4+ /hpf
[2024-04-23 21:29] LABS: Urine Random Chloride < 10 mmol/L
[2024-04-23 21:36] LABS: Troponin 5 6HR 44.67 ng/L (0-15)
[2024-04-23 21:38] LABS: Troponin 5 6HR Delta -15.33 ng/L (0-12)
[2024-04-24] VITALS (12 sets, daily range): BP systolic 91–130; BP diastolic 49–66; PULSE 67–84; RESP 16–22; TEMP 36.4–37.1; O2SAT 83–98
[2024-04-24] MEDS: methylPREDNISolone sod succ 40 mg/mL INJ IVP ×3 (02:43→17:00)
[2024-04-24] MEDS: piperacillin-tazobactam 3.375 GM in sodium chloride 0.9% (plus) 50 ML IV ×3 (02:44→17:00)
[2024-04-24] MEDS: acetylcysteine 200 mg/mL MDV 10 mL 100 MG INHALATION ×4 (02:47→20:51)
[2024-04-24] MEDS: ipratropium-albuterol 3 mL Neb INHALATION ×4 (02:47→20:51)
[2024-04-24 05:38] LABS: Basophils % 0.1 %; Hematocrit 40.7 % (37-53); Lymphocytes # 0.7 10^3/uL (0.8-4.8); Lymphocytes % 6.7 %; Mean Corpuscular Hemoglobin 30.4 pg (27-33); Mean Corpuscular Volume 98.3 fl (82-101); Mean Platelet Volume 10.3 fL (7.4-10.4); Monocytes # 0.2 10^3/uL (0.2-0.9); Monocytes % 2.3 %; Neutrophils # 9.34 10^3/uL (1.8-7.7); Neutrophils % 89.6 %; Nucleated Red Blood Cells # 0.1 /100WBC; Nucleated Red Blood Cells % 1.1 %; Platelet Count 291 10^3/cmm (157-399); Red Blood Count 4.14 10^6/uL (3.85-5.65); Red Cell Distribution Width 15.1 % (12.1-15.1); White Blood Count 10.43 10^3/uL (3.29-11.43)
[2024-04-24 05:52] LABS: Estmated Average Glucose 163; Hemoglobin A1C 7.3 % (4.0-6.0)
[2024-04-24 05:58] LABS: Alanine Aminotransferase 17 U/L (0-41); Albumin Level 3.4 g/dL (3.5-5.2); Alkaline Phosphatase 53 U/L (40-130); Aspartate Amino Transferase 12 U/L (0-40); Blood Urea Nitrogen 52 mg/dL (8-23); Calcium 8.2 mg/dL (8.5-10.5); Carbon Dioxide 28 mmol/L (22-29); Chloride 98 mmol/L (98-107); Creatinine Clr Calc Pharmacy 47.8278; Globulin 2.7 g/dL (1.3-4.6); Glomerular Filtration Rate 35.3 mL/min (90-130); Glucose 232 mg/dL (65-115); Magnesium 1.7 mg/dL (1.7-2.3); Osmolality Calculated 311 mOsm/kg (285-295); Phosphorus 4.6 mg/dL (2.5-4.5); Sodium 140 mmol/L (136-145); Total Bilirubin 0.4 mg/dL (0.15-1.2); Total Protein 6.1 g/dL (6.6-8.7)
[2024-04-24 06:00] LABS: Chol HDL Ratio 5.65 mg/dL (1.0-5.00); Cholesterol 147 mg/dL (0-200); HDL Cholesterol 26 mg/dL (60-100); LDL Cholesterol Calculated 88 mg/dL (50-129); LDL HDL Ratio 3.38 RATIO (0.00-3.22); Triglycerides 166 mg/dL (0-150)
[2024-04-24 06:04] LABS: Procalcitonin 0.22 ng/mL (0-0.5)
[2024-04-24 06:17] LABS: Folate Level 13.4 ng/mL (4.5-32.2)
[2024-04-24] MEDS: amlodipine 10 mg Tablet PO (08:02)
[2024-04-24] MEDS: metoprolol tartrate 50 mg Tablet 25 MG PO (08:02)
[2024-04-24] MEDS: fenofibrate 145 mg Tablet PO (08:03)
[2024-04-24] MEDS: aspirin 81 mg EC Tablet PO (08:03)
[2024-04-24] MEDS: allopurinol 100 mg Tablet 200 MG PO (08:03)
[2024-04-24] MEDS: budesonide 0.5 mg/2 mL Neb INHALATION ×2 (09:00→20:51)
[2024-04-24] MEDS: azithromycin 250 mg Tablet 500 MG PO (11:42)
--- NOTE | 2024-04-24 14:15 | P.PN_ITS ---
Subjective 2 Subjective: Patient still on 6 L of oxygen supplementation to maintain saturation around 90%. He states he is feeling better than yesterday and was able to sleep a lot better than he has had in the last few months. Was ambulating in the room without difficulty during examination. Not out of bed today during conversation. Denies any nausea, ting, headache. Vitals/I&O/Wt Last Vital Signs Temp 97.7 F 04/24/24 11:33 Pulse 73 04/24/24 14:10 Resp 18 04/24/24 14:00 BP 112/63 04/24/24 11:33 Pulse Ox 87 L 04/24/24 14:00 O2 Del Method Nasal Cannula 04/24/24 14:00 O2 Flow Rate 6 04/24/24 14:00 04/23/24 04/24/24 04/24/24 22:59 06:59 14:59 Intake Total 780 / 780 780 / 780 Balance 780 / 780 780 / 780 Weight last 48 hrs Weight 120.882 kg Weight 121.064 kg Weight 121.064 kg Physical Exam 2 Narrative: General: No acute distress, AO x3, Sick appearing, morbidly obese HEENT: PERRLA, pupils bilaterally equal and reactive Chest: Bilateral bronchial breath sounds all over lung weldon occasional rhonchi, coarse crackles present all over lung weldon right more than left, lower lobe more than upper lobe CVS: S1-S2 regular, no murmurs, no tachycardia, no gallops, no rubs Abdomen: Soft, nontender, distended, no organomegaly, bowel sounds present Neuro: No focal deficits, no facial deformity, AO x3, power 5/5 in all limbs Data 04/24/24 05:07 04/24/24 05:07 Micro: Microbiology 04/24/24 06:30 Gram Stain - Final Sputum - Expectorated Sputum 04/23/24 17:35 Bacterial Antigens - Final Urine Kidney 04/23/24 14:59 Blood Culture - Preliminary Blood SPECIMEN COLLECTED 04/23/24 15:36 Blood Culture - Preliminary Blood SPECIMEN COLLECTED A&P Assessment and plan (1) Respiratory failure: (2) Pneumonia: (3) Renal dysfunction: (4) HTN (hypertension): (5) Type 2 diabetes mellitus: (6) Obesity: (7) HLD (hyperlipidemia): (8) Carotid artery occlusion: Plan 69-year-old gentleman with no significant respiratory history presented to the ER with hypoxic respiratory failure due to shortness of breath which has been progressively getting worse over last 6 months though patient has not followed up with any physician in a long time. Acute hypoxic respiratory failure: Most likely in setting of pneumonia with concerns for obstructive sleep apnea and COPD. CHF cannot be ruled out. Appreciate procalcitonin, negative urine Legionella and bacterial antigen, respiratory viral panel. MRSA swab negative. Sputum culture pending. D-dimer appreciated. Appreciate CT chest results. Concern for significant consolidation on the right lungs. Appreciate ABG. Oxygen supplementation keeping saturation over 90%. Aggressive pulmonary toilet with I-S and Acapella along with chest vest. DuoNeb every 6 hour, Pulmicort twice daily, Mucomyst every 4 hours. Appreciate speech evaluation results. Start on regular consistency diet. No concerns for aspiration. Empirically start on IV Zosyn and IV azithromycin for atypical coverage. As patient is still requiring high oxygen supplementation for now we will start on IV linezolid. Echocardiogram shows an EF of 63% with grade 2 diastolic dysfunction, biatrial enlargement with trace MR with a PASP of 29 mmHg. Rules out GISSELLE versus CKD: No labs present in the system since 2017 when renal functions were normal. Creatinine down to 1.9 today. Medical reconciliation done for nephrotoxic drugs. Hold off on losartan. Ct abd w/o contrast rules out obs nephropathy Check renal functions daily. Appreciate urine lites, urine creatinine, urine eosinophils. Type 2 diabetes mellitus: A1c 7.3. Insulin sliding scale. Hold off on OHA's. Hypertension: Goal blood pressure less than 140/90 mmHg. Continue with home dose of metoprolol. Hold off on amlodipine and losartan. Will uptitrate as for goal blood pressure. History of carotid artery stenosis: Appreciate Doppler results without concerns for significant carotid artery stenosis. Continue with aspirin, statin. CODE STATUS: Discussed in detail with the patient with spouse at bedside. Spouse will be DPOA. Patient does not want any aggressive resuscitation. DNR/DNI. Plan persistent cardiac diet Protonix for PUD prophylaxis Heparin 5000 Q12 hourly for DVT prophylaxis. Attestations 2 Medical Necessity Statement*: Requires further hospitalization for management of hypoxic respiratory failure in setting of right-sided pneumonia with concerns for ARDS, GISSELLE versus CKD Diagnoses Respiratory failure J96.90 Pneumonia J18.9 Renal dysfunction N28.9 HTN (hypertension) I10 Type 2 diabetes mellitus E11.9 Obesity E66.9 HLD (hyperlipidemia) E78.5 Carotid artery occlusion I65.29
[2024-04-24] MEDS: linezolid 600 mg Tablet PO (14:35)
[2024-04-24] MEDS: atorvastatin 40 mg Tablet PO (17:00)
[2024-04-24] MEDS: pantoprazole 40 mg SDV IVP (17:00)
[2024-04-25] VITALS (11 sets, daily range): BP systolic 96–138; BP diastolic 48–72; PULSE 82–100; RESP 15–29; TEMP 36.3–36.7; O2SAT 89–91; BMI 35.5
[2024-04-25] MEDS: ipratropium-albuterol 3 mL Neb INHALATION ×4 (01:30→22:00)
[2024-04-25] MEDS: acetylcysteine 200 mg/mL MDV 10 mL 100 MG INHALATION ×4 (01:30→21:59)
[2024-04-25] MEDS: piperacillin-tazobactam 3.375 GM in sodium chloride 0.9% (plus) 50 ML IV ×3 (01:32→17:15)
[2024-04-25] MEDS: linezolid 600 mg Tablet PO ×2 (01:32→14:57)
[2024-04-25] MEDS: methylPREDNISolone sod succ 40 mg/mL INJ IVP ×3 (01:33→17:16)
[2024-04-25 05:03] LABS: Basophils % 0.1 %; Hematocrit 43.6 % (37-53); Lymphocytes # 0.5 10^3/uL (0.8-4.8); Lymphocytes % 2.9 %; Mean Corpuscular HGB Conc 30.5 g/dL (30-55); Mean Corpuscular Hemoglobin 31.4 pg (27-33); Mean Corpuscular Volume 103.1 fl (82-101); Mean Platelet Volume 10.5 fL (7.4-10.4); Monocytes # 0.7 10^3/uL (0.2-0.9); Monocytes % 4.2 %; Neutrophils # 15.01 10^3/uL (1.8-7.7); Neutrophils % 91.6 %; Nucleated Red Blood Cells # 0.1 /100WBC; Nucleated Red Blood Cells % 0.6 %; Platelet Count 350 10^3/cmm (157-399); Red Blood Count 4.23 10^6/uL (3.85-5.65); Red Cell Distribution Width 15.4 % (12.1-15.1); White Blood Count 16.36 10^3/uL (3.29-11.43)
[2024-04-25 05:22] LABS: Alanine Aminotransferase 19 U/L (0-41); Albumin Level 3.6 g/dL (3.5-5.2); Alkaline Phosphatase 57 U/L (40-130); Anion Gap 21.2 (5-19); Aspartate Amino Transferase 11 U/L (0-40); Blood Urea Nitrogen 65 mg/dL (8-23); Calcium 8.6 mg/dL (8.5-10.5); Carbon Dioxide 28 mmol/L (22-29); Chloride 97 mmol/L (98-107); Creatinine Clr Calc Pharmacy 30.1757; Globulin 2.8 g/dL (1.3-4.6); Glomerular Filtration Rate 21.7 mL/min (90-130); Glucose 309 mg/dL (65-115); Osmolality Calculated 324 mOsm/kg (285-295); Potassium 4.2 mmol/L (3.5-5.1); Sodium 142 mmol/L (136-145); Total Bilirubin 0.4 mg/dL (0.15-1.2); Total Protein 6.4 g/dL (6.6-8.7)
[2024-04-25] MEDS: allopurinol 100 mg Tablet 200 MG PO (08:24)
[2024-04-25] MEDS: sodium chloride 0.9% 1,000 ML 75 ML IV ×2 (08:24→17:15)
[2024-04-25] MEDS: azithromycin 250 mg Tablet 500 MG PO (08:25)
[2024-04-25] MEDS: aspirin 81 mg EC Tablet PO (08:25)
[2024-04-25] MEDS: fenofibrate 145 mg Tablet PO (08:25)
[2024-04-25] MEDS: budesonide 0.5 mg/2 mL Neb INHALATION ×2 (08:57→21:59)
--- NOTE | 2024-04-25 09:53 | P.DS_ITS ---
Discharge Providers Date of Admission: 04/23/24 15:53 Date of Discharge: April 25, 2024 Attending Provider at Admission: Caio Nassar MD Attending Provider at Discharge: Caio Nassar MD Primary Care Provider: Yulia Arango Diagnoses at Discharge Discharge Diagnosis (1) Respiratory failure: Status: Acute (2) Pneumonia: Status: Acute (3) Renal dysfunction: Status: Acute (4) HTN (hypertension): Status: Acute (5) Type 2 diabetes mellitus: Status: Acute (6) Obesity: Status: Acute (7) HLD (hyperlipidemia): Status: Acute (8) Carotid artery occlusion: Status: Acute Reason for Visit Reason for Visit: sob,weak Physical Exam Narrative: General: No acute distress, AO x3, Sick appearing, morbidly obese HEENT: PERRLA, pupils bilaterally equal and reactive Chest: Bilateral bronchial breath sounds all over lung weldon occasional rhonchi, coarse crackles present all over lung weldon right more than left, low er lobe more than upper lobe CVS: S1-S2 regular, no murmurs, no tachycardia, no gallops, no rubs Abdomen: Soft, nontender, distended, no organomegaly, bowel sounds present Neuro: No focal deficits, no facial deformity, AO x3, power 5/5 in all limbs Discharge Data Studies Completed and Pending Completed Studies During Hospitalization Category Date Time Status CT abdomen pelvis wo con [id number] Routine Cat Scan 04/23/24 17:[address] chest wo con [id number] Stat Cat Scan 04/23/24 15:07 Completed XR chest 1V portable [id number] Stat Exams 04/23/24 14:05 Completed CV carotid duplex BI* [id number] Routine Ultrasound 04/23/24 16:52 Completed CV. echo complete* [id number] Routine Ultrasound 04/23/24 16:24 Completed Pending at discharge Category Date Time Status BMP [Basic Metabolic Panel] Routine Lab 04/25/24 15:00 Ordered Blood Culture Stat Lab 04/23/24 14:59 Results Coccidioides AB CF Serum Routine Lab 04/23/24 21:09 Received Complete Blood Count w/Auto AM LABS Lab 04/26/24 04:00 Ordered Comprehensive Metabolic Panel AM LABS Lab 04/26/24 04:00 Ordered Fungitell Glucan Assay (Blood) Routine Lab 04/23/24 21:09 Received Histoplasma Quantitative AG Routine Lab 04/23/24 17:35 Received Sputum Culture and Gram Stain Stat Lab 04/24/24 06:30 Results Radiology Impressions Chest X-Ray 04/23/24 14:05 Impression: Patchy opacities in the right upper lobe and probably left lower lobe which could represent acute pneumonia. Chest CT 04/23/24 15:07 IMPRESSION: 1. Multi lobar pneumonia. Most extensive pulmonary opacification and pneumonia is in the RIGHT upper lobe. Pneumonia continues into a portion of the RIGHT lower lobe with a few areas of scattered opacifications throughout the LEFT lung. Most consistent with pneumonia. Consider aspiration pneumonia. 2. Single subcarinal lymph node at 1.8 cm. The remaining lymph nodes are normal. This may be a reactive lymph node. 3. Mild cardiomegaly. Abdomen/Pelvis CT 04/23/24 17:49 IMPRESSION: 1. Negative for acute inflammatory process in the abdomen or pelvis. 2. Bibasilar right greater than left pneumonic infiltrates. 3. Emphysematous changes. 4. Cardiomegaly. 5. Right kidney probable subcentimeter proteinaceous cyst, series 2, image 46, consider correlation with ultrasound to confirm suspected cystic nature. 6. Diverticulosis without diverticulitis. 7. Chronic bilateral L5 pars articularis defects. 8. Small omental fat containing hernia. 9. Left adrenal 19 mm low-density nodule likely reflecting a benign adenoma. COMMENTS: 1. Consistent with the [employer]'s Incidental Findings Committee white paper (J Am Sola Radiol 2018): Any incidental renal lesion less than 1 cm or classified as too small to characterize, or any incidental cystic renal lesion characterized as simple-appearing, is likely benign. No follow-up imaging is recommended for these lesions per consensus recommendations based on imaging criteria. 2. Consistent with the [employer]'s Incidental Findings Committee white paper (J Am Sola Radiol 2017): For any incidental adrenal lesion greater than or equal to 1 cm but less than or equal to 4 cm classified in this report as benign, likely benign, or containing fat (including classification as an adenoma or myelolipoma), no follow-up imaging is recommended per consensus recommendations based on imaging criteria. Further lab evaluation could be pursued if warranted based on clinical findings. Laboratory Results WBC 16.36 10^3/uL (3.29-11.43) H 04/25/24 04:45 RBC 4.23 10^6/uL (3.85-5.65) 04/25/24 04:45 Hgb 13.30 g/dL (11.27-16.99) 04/25/24 04:45 Hct 43.6 % (37-53) 04/25/24 04:45 MCV 103.1 fl (82-101) H 04/25/24 04:45 MCH 31.4 pg (27-33) 04/25/24 04:45 MCHC 30.5 g/dL (30-55) 04/25/24 04:45 RDW 15.4 % (12.1-15.1) H 04/25/24 04:45 Plt Count 350 10^3/cmm (157-399) 04/25/24 04:45 MPV 10.5 fL (7.4-10.4) H 04/25/24 04:45 Neut % (Auto) 91.6 % 04/25/24 04:45 Lymph % (Auto) 2.9 % 04/25/24 04:45 [place] % (Auto) 4.2 % 04/25/24 04:45 Eos % (Auto) 0.0 % 04/25/24 04:45 Baso % (Auto) 0.1 % 04/25/24 04:45 Neut # (Auto) 15.01 10^3/uL (1.8-7.7) H 04/25/24 04:45 Lymph # (Auto) 0.5 10^3/uL (0.8-4.8) L 04/25/24 04:45 [place] # (Auto) 0.7 10^3/uL (0.2-0.9) 04/25/24 04:45 Eos # (Auto) 0.0 10^3/uL (0.0-0.8) 04/25/24 04:45 Baso # (Auto) 0.0 10^3/uL (0.0-0.1) 04/25/24 04:45 Nucleated RBC % (auto) 0.6 % 04/25/24 04:45 Nucleated RBCs # 0.1 /100WBC 04/25/24 04:45 D-Dimer 1.33 ug/mLFEU (0-0.59) H 04/23/24 14:27 Specimen Type Arterial 04/23/24 14:25 Sample Site Radial, right 11/25/24 14:25 ABG pH 7.38 (7.35-7.45) 04/23/24 14:25 ABG pCO2 51.2 mmHg (35-45) H 04/23/24 14:25 ABG pO2 63.2 mmHg (80.0-100.0) L 04/23/24 14:25 ABG PO2/FiO2 Ratio 158 04/23/24 14:25 ABG HCO3 30.4 mmol/L (22-26) H 04/23/24 14:25 ABG O2 Saturation 90.1 04/23/24 14:25 ABG Base Excess 4.1 mmol/L (-2.0-2.0) H 04/23/24 14:25 Khalif Test Pos 04/23/24 14:25 A-a O2 Gradient 20.8 mmHg (5-10) H 04/23/24 14:25 Hematocrit 43.6 % (42-52) 04/23/24 14:25 Hgb O2 Saturation 87.0 % (95-100) L 04/23/24 14:25 Carboxyhemoglobin 2.4 %THgb (0.4-20.1) 04/23/24 14:25 Methemoglobin 1.1 % (0.4-1.5) 04/23/24 14:25 Total Hemoglobin 14.2 g/dL (14-18) 04/23/24 14:25 Sodium 139.0 mmol/L (131-143) 04/23/24 14:25 Potassium 3.7 mmol/L (3.5-5.0) 04/23/24 14:25 Glucose 142.0 mg/dL (70-115) H 04/23/24 14:25 Ionized Calcium 1.1 mmol/L (1.1-1.4) 04/23/24 14:25 O2 Delivery Device Nc 04/23/24 14:25 O2 Liters/Min 5.0 % 04/23/24 14:25 FiO2 40.0 % 04/23/24 14:25 Computer Systems [employer]ator ID [id number] 04/23/24 14:25 Sodium 142 mmol/L (136-145) 04/25/24 04:45 Potassium 4.2 mmol/L (3.5-5.1) 04/25/24 04:45 Chloride 97 mmol/L (98-107) L 04/25/24 04:45 Carbon Dioxide 28 mmol/L (22-29) 04/25/24 04:45 Anion Gap 21.2 (5-19) H 04/25/24 04:45 BUN 65 mg/dL (8-23) H 04/25/24 04:45 Creatinine 2.9 mg/dL (0.7-1.2) H 04/25/24 04:45 GFR Calculation 21.7 mL/min (90-130) L 04/25/24 04:45 Glucose 309 mg/dL (65-115) H 04/25/24 04:45 Estimat Average Glucose 163 04/24/24 05:07 Hemoglobin A1c 7.3 % (4.0-6.0) H 04/24/24 05:07 Calculated Osmolality 324 mOsm/kg (285-295) H 04/25/24 04:45 Lactic Acid 1.1 mmol/L (0.5-2.2) 04/23/24 14:55 Calcium 8.6 mg/dL (8.5-10.5) 04/25/24 04:45 Phosphorus 4.6 mg/dL (2.5-4.5) H 04/24/24 05:07 Magnesium 1.7 mg/dL (1.7-2.3) 04/24/24 05:07 Iron 37 ug/dL (59-158) L 04/23/24 14:27 TIBC 205 mcg/dl 04/23/24 14:27 % Saturation 18.0 % (20-50) L 04/23/24 14:27 Unsat Iron Binding 168 ug/dL (112-347) 04/23/24 14:27 Total Bilirubin 0.4 mg/dL (0.15-1.2) 04/25/24 04:45 AST 11 U/L (0-40) 04/25/24 04:45 ALT 19 U/L (0-41) 04/25/24 04:45 Alkaline Phosphatase 57 U/L (40-130) 04/25/24 04:45 Lactate Dehydrogenase 257 U/L (135-225) H 04/23/24 17:16 Troponin T Baseline 60 ng/L (0-15) H 04/23/24 14:27 Troponin T 120 Minute 57.13 ng/L (0-15) H 04/23/24 16:15 Delta Troponin T -2.87 ABS# (0-10) L 04/23/24 16:15 Troponin T Hi Sens 6Hr 44.67 ng/L (0-15) H 04/23/24 21:09 Troponin T Hi Sens 6Hr Delta -15.33 ng/L (0-12) L 04/23/24 21:09 NT-Pro-B Natriuret Pep 4275 pg/mL (0-125) H 04/23/24 14:27 Total Protein 6.4 g/dL (6.6-8.7) L 04/25/24 04:45 Albumin 3.6 g/dL (3.5-5.2) 04/25/24 04:45 Globulin 2.8 g/dL (1.3-4.6) 04/25/24 04:45 Triglycerides 166 mg/dL (0-150) H 04/24/24 05:07 Cholesterol 147 mg/dL (0-200) 04/24/24 05:07 LDL Cholesterol, Calc 88 mg/dL (50-129) 04/24/24 05:07 HDL Cholesterol 26 mg/dL (60-100) L 04/24/24 05:07 LDL/HDL Ratio 3.38 RATIO (0.00-3.22) H 04/24/24 05:07 Cholesterol/HDL Ratio 5.65 mg/dL (1.0-5.00) H 04/24/24 05:07 Vitamin B12 487 pg/mL (232-1245) 04/23/24 14: Folate 13.4 ng/mL (4.5-32.2) 04/24/24 05:07 Procalcitonin 0.22 ng/mL (0-0.5) 04/24/24 05:07 TSH 1.99 uIU/mL (0.27-4.20) 04/23/24 14:27 Urine Color Yellow (Yellow) 04/23/24 17:35 Urine Appearance Turbid (CLEAR) A 04/23/24 17:35 Urine pH 5.0 (5-7) 04/23/24 17:35 Ur Specific [place] 1.014 (1.005-1.030) 04/23/24 17:35 Urine Protein 1+ (Negative) A 04/23/24 17:35 Urine Glucose (UA) Negative (Normal) 04/23/24 17:35 Urine Ketones Negative (Negative) 04/23/24 17:35 Urine Blood Negative (Negative) 04/23/24 17:35 Urine Nitrate Negative (Negative) 04/23/24 17:35 Urine Bilirubin Negative (Negative) 04/23/24 17:35 Urine Urobilinogen 1.0 mg/dL (Negative) 04/23/24 17:35 Ur Leukocyte Esterase Negative (Negative) 04/23/24 17:35 Urine RBC 0-2 /hpf (0-2) 04/23/24 17:35 Urine WBC 0-5 /hpf (0-5) 04/23/24 17:35 Ur Squamous Epith Cells 0-5 /hpf (0-5) 04/23/24 17:35 Amorphous Sediment 4+ /hpf 04/23/24 17:35 Urine Bacteria 2+ /hpf (NONE) H 04/23/24 17:35 Hyaline Casts 9.51 /lpf 04/23/24 17:35 Ur Random Sodium 12 mmol/L 04/23/24 17:35 Ur Random Potassium 28 mmol/L 04/23/24 17:35 Ur Random Chloride < 10 mmol/L 04/23/24 17:35 Urine Creatinine 148 mg/dL (39-259) 04/23/24 17:35 Nasal MRSA (PCR) Not detected (Negative) 04/23/24 18:44 Adenovirus (PCR) Not detected (NOT DETECT) 04/23/24 16:22 C. pneumoniae DNA (PCR) Not detected (NOT DETECT) 04/23/24 16:22 Coronavirus (PCR) Negative (Negative) 04/23/24 16:22 Coronavirus 229E (PCR) Not detected (NOT DETECT) 04/23/24 16:22 Human Metapneumovir PCR Not detected (NOT DETECT) 04/23/24 16:22 Influenza A (H1) PCR Not detected (NOT DETECT) 04/23/24 16:22 Influenza A (PCR) Negative (Negative) 04/23/24 16:22 Influ A (H1/09) PCR Not detected (NOT DETECT) 04/23/24 16:22 Influenza A (H3) PCR Not detected (NOT DETECT) 04/23/24 16:22 Influenza Type A (PCR) Not detected (NOT DETECT) 04/23/24 16:22 Influenza Type B (PCR) Negative (Negative) 04/23/24 16:22 Influenza Type B (PCR) Not detected (NOT DETECT) 04/23/24 16:22 M. pneumoniae (PCR) Not detected (NOT DETECT) 04/23/24 16:22 Parainfluenza 1 (PCR) Not detected (NOT DETECT) 04/23/24 16:22 Parainfluenza 2 (PCR) Not detected (NOT DETECT) 04/23/24 16:22 Parainfluenza 3 (PCR) Not detected (NOT DETECT) 04/23/24 16:22 Parainfluenza 4 (PCR) Not detected (NOT DETECT) 04/23/24 16:22 RSV (PCR) Negative (Negative) 04/23/24 16:22 RSV Type A (PCR) Not detected (NOT DETECT) 04/23/24 16:22 RSV Type B (PCR) Not detected (NOT DETECT) 04/23/24 16:22 Entero/Rhino (PCR) Not detected (NOT DETECT) 04/23/24 16:22 SARS-CoV-2 (PCR) Not detected (NOT DETECT) 04/23/24 16:22 Vitals Last Vital Signs Temp 97.3 F L 04/25/24 07:29 Pulse 86 04/25/24 08:57 Resp 20 H 04/25/24 08:57 BP 96/61 04/25/24 07:29 Pulse Ox 90 04/25/24 08:57 O2 Del Method Nasal Cannula 04/25/24 08:57 O2 Flow Rate 5 04/25/24 08:57 Discharge Plan Discharge Condition: Stable Prescriptions: No Action atorvastatin 40 mg tablet 40 mg PO QPM allopurinol 100 mg tablet 200 mg PO DAILY amlodipine 10 mg tablet 10 mg PO DAILY metoprolol tartrate 50 mg tablet 25 mg PO BIDWM nitroglycerin 0.4 mg tablet, sublingual See Rx Instructions .ROUTE .COMPLEX Rx Instructions: DISSOLVE ONE TABLET UNDER THE TONGUE EVERY 5 MINUTES NEEDED FOR CHEST PAIN. DO NOT EXCEED A TOTAL OF 3 DOSES IN 15 MINUTES albuterol sulfate 90 mcg/actuation HFA aerosol inhaler See Rx Instructions .ROUTE .COMPLEX Rx Instructions: take 2 puff by mouth every 4 to 6 hours as needed for shortness of breath pioglitazone 30 mg tablet 30 mg PO DAILY losartan 100 mg tablet 100 mg PO DAILY fenofibrate nanocrystallized 145 mg tablet 145 mg PO DAILY acetaminophen [Tylenol] 325 mg Tablet 650 mg PO QID PRN (Reason: Pain) aspirin [Lola Low Dose Aspirin] 81 mg Tablet,Delayed Release (Dr/Ec) 81 mg PO DAILY Referrals: Yulia Arango PA-C [Primary Care Provider] - Patient Instructions: Opioid Safety Coding Level of Care Code Acute Code for Chg Fwd Diagnoses Respiratory failure J96.90 Pneumonia J18.9 Renal dysfunction N28.9 HTN (hypertension) I10 Type 2 diabetes mellitus E11.9 Obesity E66.9 HLD (hyperlipidemia) E78.5 Carotid artery occlusion I65.29
--- NOTE | 2024-04-25 10:03 | PC.SOCIAL ---
IMM Updated Updated pt on IMM. No questions voiced. Provided pt a copy. Initialed, dated, & timed a copy & placed in chart.
--- NOTE | 2024-04-25 10:06 | P.PN_ITS ---
Subjective 2 Subjective: Events overnight. Seen with at bedside today. Sleeping comfortably. Both and patient states he is feeling better. Still requiring up to 5 to 6 L of oxygen. Blood pressure today morning slightly agreeable to walk around. In good spirits. Vitals/I&O/Wt Last Vital Signs Temp 97.3 F L 04/25/24 07:29 Pulse 86 04/25/24 08:57 Resp 20 H 04/25/24 08:57 BP 96/61 04/25/24 07:29 Pulse Ox 90 04/25/24 08:57 O2 Del Method Nasal Cannula 04/25/24 08:57 O2 Flow Rate 5 04/25/24 08:57 04/24/24 04/25/24 04/25/24 22:59 06:59 14:59 Intake Total 50 / 830 50 / 880 480 / 480 Balance 50 / 830 50 / 880 480 / 480 Weight last 48 hrs Weight 112.355 kg Weight 120.882 kg Weight 121.064 kg Weight 121.064 kg Physical Exam 2 Narrative: General: No acute distress, AO x3, Sick appearing, morbidly obese HEENT: PERRLA, pupils bilaterally equal and reactive Chest: Bilateral bronchial breath sounds all over lung weldon occasional rhonchi, coarse crackles present all over lung weldon right more than left, lower lobe more than upper lobe CVS: S1-S2 regular, no murmurs, no tachycardia, no gallops, no rubs Abdomen: Soft, nontender, distended, no organomegaly, bowel sounds present Neuro: No focal deficits, no facial deformity, AO x3, power 5/5 in all limbs Data 04/25/24 04:45 04/25/24 04:45 Micro: Microbiology 04/23/24 14:59 Blood Culture - Preliminary Blood NEGATIVE TO DATE 04/23/24 15:36 Blood Culture - Preliminary Blood NEGATIVE TO DATE 04/24/24 06:30 Gram Stain - Final Sputum - Expectorated Sputum 04/23/24 17:35 Bacterial Antigens - Final Urine Kidney A&P Assessment and plan (1) Respiratory failure: (2) Pneumonia: (3) Renal dysfunction: (4) HTN (hypertension): (5) Type 2 diabetes mellitus: (6) Obesity: (7) HLD (hyperlipidemia): (8) Carotid artery occlusion: Plan 69-year-old gentleman with no significant respiratory history presented to the ER with hypoxic respiratory failure due to shortness of breath which has been progressively getting worse over last 6 months though patient has not followed up with any physician in a long time. Acute hypoxic respiratory failure: Most likely in setting of pneumonia with concerns for obstructive sleep apnea and COPD. CHF cannot be ruled out. Appreciate procalcitonin, negative urine Legionella and bacterial antigen, respiratory viral panel. MRSA swab negative. Sputum culture pending. D-dimer appreciated. Appreciate CT chest results. Concern for significant consolidation on the right lungs. Appreciate ABG. Oxygen supplementation keeping saturation over 90%. Aggressive pulmonary toilet with I-S and Acapella along with chest vest. DuoNeb every 6 hour, Pulmicort twice daily, Mucomyst every 4 hours. Appreciate speech evaluation results. Start on regular consistency diet. No concerns for aspiration. Empirically start on IV Zosyn and IV azithromycin for atypical coverage. As patient is still requiring high oxygen supplementation for now we will start on IV linezolid. Echocardiogram shows an EF of 63% with grade 2 diastolic dysfunction, biatrial enlargement with trace MR with a PASP of 29 mmHg. Rules out GISSELLE versus CKD: No labs present in the system since 2017 when renal functions were normal. Creatinine down to 1.9 today. Medical reconciliation done for nephrotoxic drugs. Hold off on losartan. Ct abd w/o contrast rules out obs nephropathy Check renal functions daily. Appreciate urine lites, urine creatinine, urine eosinophils. Type 2 diabetes mellitus: A1c 7.3. Insulin sliding scale. Hold off on OHA's. Hypertension: Goal blood pressure less than 140/90 mmHg. Continue with home dose of metoprolol. Hold off on amlodipine and losartan. Will uptitrate as for goal blood pressure. History of carotid artery stenosis: Appreciate Doppler results without concerns for significant carotid artery stenosis. Continue with aspirin, statin. Plan for the day: Follow-up blood culture and sputum culture results. For now continue with current IV antibiotics including linezolid. Aggressive pulmonary toilet. Nebulization treatment along with Mucomyst nebulizations. Plan to wean steroids from tomorrow. Continue with Solu-Medrol 40 mg every 8 hourly for now. Renal functions worsening today. Start on gentle IV hydration with normal saline at 75 cc/h. Watch for fluid overload. Repeat BMP in AM. Blood sugars elevated. Most likely in setting of steroids. Add Lantus 10 units nightly. Out of bed to chair. Repeat chest x-ray. Goal blood pressure less than 140/90 mmHg with mean over 65. Continue to hold off on amlodipine and losartan. For now we will continue with metoprolol. If the blood pressures continue to be low will hold metoprolol. CODE STATUS: Discussed in detail with the patient with spouse at bedside. Spouse will be DPOA. Patient does not want any aggressive resuscitation. DNR/DNI. Plan persistent cardiac diet Protonix for PUD prophylaxis Heparin 5000 Q12 hourly for DVT prophylaxis. Attestations 2 Medical Necessity Statement*: Requires further hospitalization for management of acute hypoxic respiratory failure in setting of pneumonia, obstructive sleep apnea and COPD. Diagnoses Respiratory failure J96.90 Pneumonia J18.9 Renal dysfunction N28.9 HTN (hypertension) I10 Type 2 diabetes mellitus E11.9 Obesity E66.9 HLD (hyperlipidemia) E78.5 Carotid artery occlusion I65.29
[2024-04-25] MEDS: sodium chloride 0.9% 500 ML 999 ML IV (10:38)
--- NOTE | 2024-04-25 11:26 | PC.NURSE ---
bp is while patient is lying down
[2024-04-25 12:34] LABS: Glucose Point of Care 430 mg/dL (70-110)
[2024-04-25] MEDS: insulin lispro 100 unit/1 mL SUBCUT ×3 (13:12→20:56)
--- NOTE | 2024-04-25 14:02 | XRR_ITS ---
PROCEDURE INFORMATION: Exam: XR Chest Exam date and time: 04/25/2024 2:12 PM Age: 69 years old Clinical indication: Condition or disease; Lung condition and disease; Pneumonia; Additional info: Right chest pneumonia TECHNIQUE: Imaging protocol: Radiologic exam of the chest. Views: 1 view. COMPARISON: CT chest con [id number] 04/23/2024 3:22 PM FINDINGS: Airway: Patent Lungs: Increased density and size to the right upper lobe consolidation with new patchy consolidations in the right lung base. Pleural spaces: Unremarkable. No pleural effusion. No pneumothorax. Heart/Mediastinum: Cardiomediastinal silhouette is magnified due to technique. Bones/joints: No acute skeletal abnormality or aggressive osseous lesion. XR/XR chest 1V portable [id number] IMPRESSION: Worsening right upper lobe and new right basal pneumonia.
[2024-04-25 15:47] LABS: Anion Gap 16.4 (5-19); Blood Urea Nitrogen 73 mg/dL (8-23); Calcium 8.2 mg/dL (8.5-10.5); Carbon Dioxide 29 mmol/L (22-29); Chloride 101 mmol/L (98-107); Creatinine Clr Calc Pharmacy 38.0476; Glomerular Filtration Rate 28.3 mL/min (90-130); Glucose 454 mg/dL (65-115); Osmolality Calculated 335 mOsm/kg (285-295); Potassium 4.4 mmol/L (3.5-5.1); Sodium 142 mmol/L (136-145)
[2024-04-25 16:36] LABS: Glucose Point of Care 402 mg/dL (70-110)
[2024-04-25] MEDS: atorvastatin 40 mg Tablet PO (17:15)
[2024-04-25] MEDS: pantoprazole 40 mg SDV IVP (17:15)
[2024-04-25] MEDS: acetaminophen 325 mg Tablet 650 MG PO (17:15)
[2024-04-25] MEDS: metoprolol tartrate 50 mg Tablet 25 MG PO (17:16)
[2024-04-25 20:52] LABS: Glucose Point of Care 474 mg/dL (70-110)
[2024-04-25] MEDS: insulin glargine 100 units/1 mL 10 UNIT SUBCUT (20:56)
[2024-04-26] VITALS (11 sets, daily range): BP systolic 133–146; BP diastolic 61–70; PULSE 82–97; RESP 18–25; TEMP 36.4–36.8; O2SAT 88–92
[2024-04-26] MEDS: methylPREDNISolone sod succ 40 mg/mL INJ IVP ×2 (01:30→08:53)
[2024-04-26] MEDS: piperacillin-tazobactam 3.375 GM in sodium chloride 0.9% (plus) 50 ML IV ×3 (01:30→16:57)
[2024-04-26] MEDS: linezolid 600 mg Tablet PO ×2 (01:31→14:10)
[2024-04-26] MEDS: ipratropium-albuterol 3 mL Neb INHALATION ×4 (03:03→20:41)
[2024-04-26] MEDS: acetylcysteine 200 mg/mL MDV 10 mL 100 MG INHALATION ×4 (03:03→20:41)
[2024-04-26 05:32] LABS: Basophils % 0.1 %; Hematocrit 43.5 % (37-53); Lymphocytes # 0.4 10^3/uL (0.8-4.8); Lymphocytes % 2.6 %; Mean Corpuscular HGB Conc 29.4 g/dL (30-55); Mean Corpuscular Hemoglobin 30.8 pg (27-33); Mean Corpuscular Volume 104.8 fl (82-101); Mean Platelet Volume 10.5 fL (7.4-10.4); Monocytes # 0.5 10^3/uL (0.2-0.9); Monocytes % 3.6 %; Neutrophils # 13.49 10^3/uL (1.8-7.7); Neutrophils % 92.3 %; Nucleated Red Blood Cells # 0.1 /100WBC; Nucleated Red Blood Cells % 0.3 %; Platelet Count 298 10^3/cmm (157-399); Red Blood Count 4.15 10^6/uL (3.85-5.65); Red Cell Distribution Width 15.2 % (12.1-15.1); White Blood Count 14.61 10^3/uL (3.29-11.43)
[2024-04-26 05:50] LABS: Alanine Aminotransferase 17 U/L (0-41); Albumin Level 3.5 g/dL (3.5-5.2); Alkaline Phosphatase 54 U/L (40-130); Aspartate Amino Transferase 9 U/L (0-40); Blood Urea Nitrogen 58 mg/dL (8-23); Calcium 8.5 mg/dL (8.5-10.5); Carbon Dioxide 30 mmol/L (22-29); Chloride 104 mmol/L (98-107); Creatinine Clr Calc Pharmacy 57.0305; Globulin 2.5 g/dL (1.3-4.6); Glomerular Filtration Rate 43.1 mL/min (90-130); Glucose 348 mg/dL (65-115); Osmolality Calculated 328 mOsm/kg (285-295); Sodium 144 mmol/L (136-145); Total Bilirubin 0.3 mg/dL (0.15-1.2)
[2024-04-26] MEDS: sodium chloride 0.9% 1,000 ML 75 ML IV (06:00)
[2024-04-26 06:24] LABS: Glucose Point of Care 409 mg/dL (70-110)
[2024-04-26] MEDS: budesonide 0.5 mg/2 mL Neb INHALATION ×2 (08:43→20:41)
[2024-04-26] MEDS: insulin lispro 100 unit/1 mL SUBCUT ×4 (08:50→21:19)
[2024-04-26] MEDS: fenofibrate 145 mg Tablet PO (08:53)
[2024-04-26] MEDS: azithromycin 250 mg Tablet 500 MG PO (08:53)
[2024-04-26] MEDS: allopurinol 100 mg Tablet 200 MG PO (08:53)
[2024-04-26] MEDS: aspirin 81 mg EC Tablet PO (08:53)
[2024-04-26] MEDS: metoprolol tartrate 50 mg Tablet 25 MG PO ×2 (08:53→17:00)
[2024-04-26 11:32] LABS: Glucose Point of Care 373 mg/dL (70-110)
[2024-04-26] MEDS: insulin glargine 100 units/1 mL 10 UNIT SUBCUT ×2 (12:48→17:00)
--- NOTE | 2024-04-26 14:21 | P.PN_ITS ---
Subjective 2 Subjective: No acute events overnight. Patient seen with spouse at bedside. States he did not have a restful day yesterday because he had multiple visitors. States he did walk multiple times in the room and was sitting up in chair yesterday and today in the morning again. Vitals/I&O/Wt Last Vital Signs Temp 98.2 F 04/26/24 11:54 Pulse 84 04/26/24 11:54 Resp 18 04/26/24 11:54 BP 142/68 04/26/24 11:54 Pulse Ox 90 04/26/24 11:54 O2 Del Method Nasal Cannula 04/26/24 11:54 O2 Flow Rate 5 04/26/24 08:43 04/25/24 04/26/24 04/26/24 22:59 06:59 14:59 Intake Total 713.75 / 2223.75 1486.25 / 3710.00 770 / 770 Balance 713.75 / 2223.75 1486.25 / 3710.00 770 / 770 Weight last 48 hrs Weight 122.47 kg Weight 121.835 kg Weight 112.355 kg Weight 112.355 kg Physical Exam 2 Narrative: General: No acute distress, AO x3, Sick appearing, morbidly obese HEENT: PERRLA, pupils bilaterally equal and reactive Chest: Bilateral bronchial breath sounds all over lung weldon occasional rhonchi, coarse crackles present all over lung weldon right more than left, lower lobe more than upper lobe CVS: S1-S2 regular, no murmurs, no tachycardia, no gallops, no rubs Abdomen: Soft, nontender, distended, no organomegaly, bowel sounds present Neuro: No focal deficits, no facial deformity, AO x3, power 5/5 in all limbs Data 04/26/24 05:05 04/26/24 05:05 Micro: Microbiology 04/24/24 06:30 Gram Stain - Final Sputum - Expectorated Sputum Sputum Culture - Final A&P Assessment and plan (1) Respiratory failure: (2) Pneumonia: (3) Renal dysfunction: (4) HTN (hypertension): (5) Type 2 diabetes mellitus: (6) Obesity: (7) HLD (hyperlipidemia): (8) Carotid artery occlusion: Plan 69-year-old gentleman with no significant respiratory history presented to the ER with hypoxic respiratory failure due to shortness of breath which has been progressively getting worse over last 6 months though patient has not followed up with any physician in a long time. Acute hypoxic respiratory failure: Most likely in setting of pneumonia with concerns for obstructive sleep apnea and COPD. CHF cannot be ruled out. Appreciate procalcitonin, negative urine Legionella and bacterial antigen, respiratory viral panel. MRSA swab negative. Sputum culture pending. D-dimer appreciated. Appreciate CT chest results. Concern for significant consolidation on the right lungs. Appreciate ABG. Oxygen supplementation keeping saturation over 90%. Aggressive pulmonary toilet with I-S and Acapella along with chest vest. DuoNeb every 6 hour, Pulmicort twice daily, Mucomyst every 4 hours. Appreciate speech evaluation results. Start on regular consistency diet. No concerns for aspiration. Empirically start on IV Zosyn and IV azithromycin for atypical coverage. As patient is still requiring high oxygen supplementation for now we will start on IV linezolid. Echocardiogram shows an EF of 63% with grade 2 diastolic dysfunction, biatrial enlargement with trace MR with a PASP of 29 mmHg. Rules out GISSELLE versus CKD: No labs present in the system since 2017 when renal functions were normal. Creatinine down to 1.9 today. Medical reconciliation done for nephrotoxic drugs. Hold off on losartan. Ct abd w/o contrast rules out obs nephropathy Check renal functions daily. Appreciate urine lites, urine creatinine, urine eosinophils. Type 2 diabetes mellitus: A1c 7.3. Insulin sliding scale. Hold off on OHA's. Hypertension: Goal blood pressure less than 140/90 mmHg. Continue with home dose of metoprolol. Hold off on amlodipine and losartan. Will uptitrate as for goal blood pressure. History of carotid artery stenosis: Appreciate Doppler results without concerns for significant carotid artery stenosis. Continue with aspirin, statin. Plan for the day: Oxygen supplementation keeping saturation over 90%. Continue with current IV antibiotics. Plan to finish 5 to 7-day course of antibiotics. Follow-up blood and sputum culture. Renal functions improved. Down to 1.6. Hold off on any further IV fluids. Blood sugars elevated but most likely in setting of high steroids. Wean down to 40 mg IV daily. Continue with sliding scale at current dose. Increase Lantus to 10 units twice daily. Continue with nebulization treatment, Mucomyst nebulization along with aggressive pulmonary toilet and chest vest. Discussed in detail with patient regarding out of bed to chair and further mobilization. He is agreeable. Goal blood pressure less than 140/90 mmHg. Blood pressure is better today. Continue with current dose of metoprolol. Holding off on amlodipine. Add trazodone 50 mg nightly as needed for insomnia. CODE STATUS: Discussed in detail with the patient with spouse at bedside. Spouse will be DPOA. Patient does not want any aggressive resuscitation. DNR/DNI. Plan persistent cardiac diet Protonix for PUD prophylaxis Heparin 5000 Q12 hourly for DVT prophylaxis. Attestations 2 Medical Necessity Statement*: Requires further hospitalization for management of hypoxic respiratory failure in setting of right-sided pneumonia, COPD, renal dysfunction Diagnoses Respiratory failure J96.90 Pneumonia J18.9 Renal dysfunction N28.9 HTN (hypertension) I10 Type 2 diabetes mellitus E11.9 Obesity E66.9 HLD (hyperlipidemia) E78.5 Carotid artery occlusion I65.29
[2024-04-26 16:13] LABS: Glucose Point of Care 334 mg/dL (70-110)
[2024-04-26] MEDS: pantoprazole 40 mg SDV IVP (16:57)
[2024-04-26] MEDS: atorvastatin 40 mg Tablet PO (17:00)
[2024-04-26 21:09] LABS: Glucose Point of Care 285 mg/dL (70-110)
[2024-04-26 22:24] LABS: Fungitell 1-3-B Glucan Assay <31 pg/ml; Interpretation Negative (Negative)
[2024-04-27] VITALS (14 sets, daily range): BP systolic 155–179; BP diastolic 73–93; PULSE 75–102; RESP 16–31; TEMP 36.6–36.9; O2SAT 90–97; BMI 38.4
[2024-04-27] MEDS: piperacillin-tazobactam 3.375 GM in sodium chloride 0.9% (plus) 50 ML IV ×3 (02:22→20:38)
[2024-04-27] MEDS: linezolid 600 mg Tablet PO (02:22)
--- NOTE | 2024-04-27 03:54 | PC.NURSE ---
[place] patient raised voice from nurses station, went to check on patient and found him up walking around, nude. Patient stated loudly Leave! close the door and get out of here! . Patient refused vitals.
[2024-04-27 05:53] LABS: Basophils % 0.2 %; Hematocrit 43.3 % (37-53); Lymphocytes # 1.5 10^3/uL (0.8-4.8); Lymphocytes % 11.3 %; Mean Corpuscular HGB Conc 29.8 g/dL (30-55); Mean Corpuscular Hemoglobin 31.1 pg (27-33); Mean Corpuscular Volume 104.3 fl (82-101); Mean Platelet Volume 10.2 fL (7.4-10.4); Monocytes # 1.5 10^3/uL (0.2-0.9); Monocytes % 11.4 %; Neutrophils # 10.09 10^3/uL (1.8-7.7); Neutrophils % 75.7 %; Nucleated Red Blood Cells # 0.1 /100WBC; Nucleated Red Blood Cells % 0.4 %; Platelet Count 279 10^3/cmm (157-399); Red Blood Count 4.15 10^6/uL (3.85-5.65); Red Cell Distribution Width 15.2 % (12.1-15.1); White Blood Count 13.33 10^3/uL (3.29-11.43)
[2024-04-27 06:10] LABS: Alanine Aminotransferase 16 U/L (0-41); Albumin Level 3.4 g/dL (3.5-5.2); Alkaline Phosphatase 44 U/L (40-130); Anion Gap 12.7 (5-19); Aspartate Amino Transferase 12 U/L (0-40); Blood Urea Nitrogen 39 mg/dL (8-23); Calcium 8.9 mg/dL (8.5-10.5); Carbon Dioxide 31 mmol/L (22-29); Chloride 106 mmol/L (98-107); Creatinine Clr Calc Pharmacy 70.3841; Globulin 2.2 g/dL (1.3-4.6); Glomerular Filtration Rate 54.7 mL/min (90-130); Glucose 112 mg/dL (65-115); Osmolality Calculated 310 mOsm/kg (285-295); Potassium 4.7 mmol/L (3.5-5.1); Sodium 145 mmol/L (136-145); Total Bilirubin 0.3 mg/dL (0.15-1.2); Total Protein 5.6 g/dL (6.6-8.7)
[2024-04-27 06:26] LABS: Glucose Point of Care 112 mg/dL (70-110)
[2024-04-27] MEDS: ipratropium-albuterol 3 mL Neb INHALATION ×4 (07:29→20:21)
[2024-04-27] MEDS: budesonide 0.5 mg/2 mL Neb INHALATION ×2 (07:29→20:21)
[2024-04-27] MEDS: acetylcysteine 200 mg/mL MDV 10 mL 100 MG INHALATION ×2 (07:29→13:05)
[2024-04-27] MEDS: aspirin 81 mg EC Tablet PO (08:58)
[2024-04-27] MEDS: fenofibrate 145 mg Tablet PO (08:58)
[2024-04-27] MEDS: insulin glargine 100 units/1 mL 10 UNIT SUBCUT ×2 (08:58→17:37)
[2024-04-27] MEDS: methylPREDNISolone sod succ 40 mg/mL INJ IVP (08:58)
[2024-04-27] MEDS: allopurinol 100 mg Tablet 200 MG PO (08:58)
[2024-04-27] MEDS: metoprolol tartrate 50 mg Tablet 25 MG PO ×2 (08:58→17:38)
[2024-04-27 10:41] LABS: ABG PH Result 7.31 (7.35-7.45); Alveolar-Arterial Oxygen Gradi 23.5 mmHg (5-10); Arterial Blood Gas Hematocrit 41.8 % (42-52); Base Excess ABG 6.4 mmol/L (-2.0-2.0); Blood Gas Allen Test Pos; Blood Gas Operator Identificat MONRO; Blood Gas Sample Site Radial, right; Blood Gas Sample Type Arterial; Carboxyhemoglobin 1.2 %THgb (0.4-20.1); HGB O2 Sat 88.9 % (95-100); Ionized Calcium Level - ABG 1.3 mmol/L (1.1-1.4); Methemoglobin 0.4 % (0.4-1.5); Oxygen Device NC; Oxygen Saturation ABG 90.3; PO2 ABG 61.9 mmHg (80.0-100.0); PO2 FiO2 Ratio Arterial Blood 137; Potassium Level - ABG 4.9 mmol/L (3.5-5.0); Total Hemoglobin 13.6 g/dL (14-18)
[2024-04-27 10:42] LABS: ABG PCO2 69.2 mmHg (35-45)
--- NOTE | 2024-04-27 10:59 | XRR_ITS ---
PROCEDURE INFORMATION: Exam: XR Chest Exam date and time: 04/27/2024 11:45 AM Age: 69 years old Clinical indication: Condition or disease; Lung condition and disease; Respiratory failure; Status not specified; Additional info: Resp failure TECHNIQUE: Imaging protocol: Radiologic exam of the chest. Views: 1 view. COMPARISON: CR XR chest 1V portable [id number] 04/25/2024 2:12 PM FINDINGS: Lungs: There are stable right upper lobe and right lower lobe infiltrates concerning for pneumonia. There is trace subsegmental atelectasis of the left base. The chest is end expiratory. Pleural spaces: Unremarkable. No pleural effusion. No pneumothorax. Heart/Mediastinum: The heart is stable in size. Bones/joints: Chronic degenerative changes of the right shoulder. XR/XR chest 1V portable [id number] IMPRESSION: Stable chest.
--- NOTE | 2024-04-27 11:09 | PC.SOCIAL ---
IMM Updated Updated pt on IMM. No questions voiced. Provided pt a copy. Initialed, dated, & timed copy in chart.
[2024-04-27 11:40] LABS: NT Pro B Type Natriuretic Pept 1474 pg/mL (0-125); Procalcitonin 0.07 ng/mL (0-0.5)
[2024-04-27 11:45] LABS: Glucose Point of Care 157 mg/dL (70-110)
[2024-04-27] MEDS: FUROsemide 10 mg/mL SDV 4mL 40 MG IVP (14:10)
--- NOTE | 2024-04-27 15:02 | PM.PN ---
Subjective Subjective: Patient had a rough night overnight. He had an episode of difficulty in breathing and agitation. Today morning patient states he was anxious because he was not able to catch his breath overnight. Overnight he has remained on 5 to 6 L oxygen supplementation. Today morning as per nursing staff early in the morning he did have episode of confusion in which he was trying to get out of his bed and he ripped his IV out. Examination patient is more awake and alert, back to his baseline states his breathing is a lot better now. He is apologizing about last night's behavior. Blood pressure slightly elevated today. Vitals/I&O/Wt Last Vital Signs Temp 98.5 F 04/27/24 12:00 Pulse 83 04/27/24 13:09 Resp 26 H 04/27/24 13:07 BP 179/73 04/27/24 12:00 Pulse Ox 96 04/27/24 13:09 O2 Del Method BiPAP 04/27/24 13:07 O2 Flow Rate 6 04/27/24 07:30 FiO2 40 04/27/24 13:09 04/27/24 04/27/24 04/27/24 06:59 14:59 22:59 Intake Total 50 / 2756.25 732.708 / 732.708 Output Total 300 / 700 500 / 500 Balance -250 / 2056.25 232.708 / 232.708 Weight last 48 hrs Weight 122.016 kg Weight 121.563 kg Weight 122.47 kg Weight 121.835 kg Physical Exam Narrative: General: No acute distress, AO x3, Sick appearing, morbidly obese HEENT: PERRLA, pupils bilaterally equal and reactive Chest: Bilateral bronchial breath sounds all over lung weldon occasional rhonchi, coarse crackles present all over lung weldon right more than left, lower lobe more than upper lobe CVS: S1-S2 regular, no murmurs, no tachycardia, no gallops, no rubs Abdomen: Soft, nontender, distended, no organomegaly, bowel sounds present Neuro: No focal deficits, no facial deformity, AO x3, power 5/5 in all limbs Resp: COMMON NORMALS: clear to auscultation bilaterally EFFORT & INSPECTION: Yes respiratory distress AUSCULTATION: clear to auscultation bilaterally, crackles and rales Quick SOFA Score: Respiratory Rate: 26 Blood Pressure: 179/73 Barb Coma Scale: 13 qSOFA Score: 2 If qSOFA score 2 or greater, continue: PaO2/FiO2 Ratio (mmHg): 137 Blood Pressure Mean: 108 Bilirubin (mg/dl): 0.3 Platelets (x10?/ml): 279 Creatinine (mg/dl): 1.3 SOFA Score: 5 Evaluation: Current stage of sepsis: sepsis Sepsis stage criteria used: [facility] Sep-1 and Sepsis-3 Crystalloid fluids: no fluids ordered Reasons: renal failure Blood cultures ordered: Yes Possible source: pulmonary Focused Exam: Vital signs: Temp Pulse Resp BP Pulse Ox O2 Del Method O2 Flow Rate 04/27/24 13:09 83 96 04/27/24 13:07 83 26 H 97 BiPAP 04/27/24 12:00 98.5 F 83 19 H 179/73 90 Nasal Cannula 04/27/24 07:52 98.1 F 85 17 162/87 92 Nasal Cannula 04/27/24 07:30 85 20 H 93 Nasal Cannula 6 FiO2 04/27/24 13:09 40 04/27/24 13:07 50 04/27/24 12:00 04/27/24 07:52 04/27/24 07:30 Respiratory exam: CTA bilaterally, crackles present, positive rales and respiratory distress Date exam was performed: 04/27/24 Time exam was performed: 11:00 Sepsis Screen No Definite Risk 04/23/24 16:18 Respiratory Rate 26 breaths/min H (12 - 18) 04/27/24 13:07 Blood Pressure 179/73 mmHg 04/27/24 12:00 [place] Coma Scale Score 15 04/23/24 17:43 Quick SOFA Score 0 04/23/24 16:18 SOFA Score: ABG PO2/FiO2 Ratio 137 04/27/24 10:28 Barb Coma Scale Score 15 04/23/24 17:43 Blood Pressure Mean 108 mmHg 04/27/24 12:00 Total Bilirubin 0.3 mg/dL (0.15-1.2) 04/27/24 05:14 Platelet Count 279 10^3/cmm (157-399) 04/27/24 05:14 Creatinine 1.3 mg/dL (0.7-1.2) H 04/27/24 05:14 Data 04/27/24 05:14 04/27/24 05:14 Micro: Microbiology 04/24/24 06:30 Gram Stain - Final Sputum - Expectorated Sputum Sputum Culture - Final A&P Assessment and plan (1) Acute respiratory failure with hypoxia and hypercapnia: (2) Respiratory failure: (3) Pneumonia: Qualifiers: Laterality: right Lung location: middle lobe of lung (4) Renal dysfunction: (5) HTN (hypertension): (6) Type 2 diabetes mellitus: (7) Obesity: (8) HLD (hyperlipidemia): (9) Carotid artery occlusion: Plan 69-year-old gentleman with no significant respiratory history presented to the ER with hypoxic respiratory failure due to shortness of breath which has been progressively getting worse over last 6 months though patient has not followed up with any physician in a long time. Acute hypoxic respiratory failure: Most likely in setting of pneumonia with concerns for obstructive sleep apnea and COPD. CHF cannot be ruled out. Appreciate procalcitonin, negative urine Legionella and bacterial antigen, respiratory viral panel. MRSA swab negative. Sputum culture shows normal jyoti. D-dimer appreciated. Appreciate CT chest results. Concern for significant consolidation on the right lungs. Repeat ABG shows hypercapnia and hypoxia today. Patient is agreeable for BiPAP ventilation. Plan for BiPAP nightly. Check chest x-ray, proBNP, procalcitonin. Oxygen supplementation keeping saturation over 90%. Aggressive pulmonary toilet with I-S and Acapella along with chest vest. Out of bed to chair. Discussed about ambulation. DuoNeb every 6 hour, Pulmicort twice daily, Mucomyst every 4 hours. Appreciate speech evaluation results. Continue with regular consistency diet. No concerns for aspiration. Continue with IV Solu-Medrol 40 mg daily. Continue with empiric Zosyn, linezolid. Patient has finished a 3-day course of azithromycin for atypical coverage. Echocardiogram shows an EF of 63% with grade 2 diastolic dysfunction, biatrial enlargement with trace MR with a PASP of 29 mmHg. Patient has been on IV fluids for last 24 to 36 hours which was discontinued yesterday evening. Not sure about the urine output and intake for now. Start on IV Lasix one-time 40 mg. GISSELLE versus CKD: No labs present in the system since 2017 when renal functions were normal. Creatinine 1.3 today. Medical reconciliation done for nephrotoxic drugs. Hold off on losartan. Ct abd w/o contrast rules out obs nephropathy Check renal functions daily. Appreciate urine lites, urine creatinine, urine eosinophils. Type 2 diabetes mellitus: A1c 7.3. Insulin sliding scale. Hold off on OHA's. Continue with Lantus at 10 units twice daily. Blood sugars better controlled since weaning of IV Solu-Medrol. Hypertension: Goal blood pressure less than 140/90 mmHg. Continue with home dose of metoprolol. Blood pressure slightly elevated today. Will continue to monitor. If continues to remain elevated will add home dose of amlodipine. Hold off on amlodipine and losartan for now. Will uptitrate as for goal blood pressure. History of carotid artery stenosis: Appreciate Doppler results without concerns for significant carotid artery stenosis. Continue with aspirin, statin. If patient continues to require high oxygen supplementation close worsening respiratory distress will most likely have to transfer patient to a tertiary center where pulmonology is available for bronchoscopy. CODE STATUS: Discussed in detail with the patient with spouse at bedside. Spouse will be DPOA. Patient does not want any aggressive resuscitation. DNR/DNI. Plan persistent cardiac diet Protonix for PUD prophylaxis Heparin 5000 Q12 hourly for DVT prophylaxis. Attestations Medical Necessity Statement*: Requires further hospitalization for management of acute on chronic hypoxic and hypercapnic respiratory failure in setting of right-sided pneumonia, undiagnosed sleep apnea, renal dysfunction as patient is on high oxygen supplementation. Diagnoses Acute respiratory failure with hypoxia and hypercapnia J96.01; J96.02 Respiratory failure J96.90 Pneumonia J18.9 Laterality: right Lung location: middle lobe of lung Renal dysfunction N28.9 HTN (hypertension) I10 Type 2 diabetes mellitus E11.9 Obesity E66.9 HLD (hyperlipidemia) E78.5 Carotid artery occlusion I65.29
[2024-04-27 16:34] LABS: Glucose Point of Care 347 mg/dL (70-110)
[2024-04-27] MEDS: insulin lispro 100 unit/1 mL SUBCUT ×2 (17:37→20:19)
[2024-04-27] MEDS: atorvastatin 40 mg Tablet PO (17:38)
[2024-04-27] MEDS: ALPRAZolam 0.5 mg Tablet PO ×2 (17:39→23:22)
[2024-04-27] MEDS: acetylcysteine 200 mg/mL SDV 4 mL 100 MG INHALATION (20:21)
[2024-04-27 20:25] LABS: Glucose Point of Care 412 mg/dL (70-110)
[2024-04-27] MEDS: morphine 4 mg/mL SDV 1 mL 2 MG IVP (22:13)
[2024-04-27] MEDS: trazodone 50 mg Tablet PO (23:22)
[2024-04-28] VITALS (15 sets, daily range): BP systolic 142–183; BP diastolic 68–91; PULSE 68–98; RESP 14–24; TEMP 36.6–37.1; O2SAT 90–94
[2024-04-28 04:59] LABS: Basophils % 0.1 %; Eosinophils % 0.1 %; Hematocrit 42.9 % (37-53); Lymphocytes # 1.7 10^3/uL (0.8-4.8); Lymphocytes % 19.2 %; Mean Corpuscular HGB Conc 29.6 g/dL (30-55); Mean Corpuscular Hemoglobin 30.9 pg (27-33); Mean Corpuscular Volume 104.4 fl (82-101); Mean Platelet Volume 10.2 fL (7.4-10.4); Monocytes # 0.9 10^3/uL (0.2-0.9); Monocytes % 10.6 %; Neutrophils # 6.02 10^3/uL (1.8-7.7); Neutrophils % 68.9 %; Nucleated Red Blood Cells % 0 %; Platelet Count 255 10^3/cmm (157-399); Red Blood Count 4.11 10^6/uL (3.85-5.65); Red Cell Distribution Width 15.1 % (12.1-15.1); White Blood Count 8.75 10^3/uL (3.29-11.43)
[2024-04-28] MEDS: morphine 4 mg/mL SDV 1 mL 2 MG IVP (05:14)
[2024-04-28] MEDS: piperacillin-tazobactam 3.375 GM in sodium chloride 0.9% (plus) 50 ML IV ×2 (05:15→12:30)
[2024-04-28] MEDS: linezolid 600 mg Tablet PO ×2 (05:15→13:30)
[2024-04-28 05:23] LABS: Alanine Aminotransferase 17 U/L (0-41); Albumin Level 3.4 g/dL (3.5-5.2); Alkaline Phosphatase 40 U/L (40-130); Anion Gap 10.4 (5-19); Aspartate Amino Transferase 11 U/L (0-40); Blood Urea Nitrogen 34 mg/dL (8-23); Calcium 9.4 mg/dL (8.5-10.5); Carbon Dioxide 38 mmol/L (22-29); Chloride 107 mmol/L (98-107); Creatinine Clr Calc Pharmacy 65.2287; Globulin 1.8 g/dL (1.3-4.6); Glomerular Filtration Rate 50.2 mL/min (90-130); Glucose 94 mg/dL (65-115); Osmolality Calculated 319 mOsm/kg (285-295); Potassium 4.4 mmol/L (3.5-5.1); Sodium 151 mmol/L (136-145); Total Bilirubin 0.4 mg/dL (0.15-1.2); Total Protein 5.2 g/dL (6.6-8.7)
--- NOTE | 2024-04-28 05:53 | PC.NURSE ---
SHIFT SUMMARY Sina had a decent night. He was able to maintain wearing the bipap until 429, at which point he requested to use the nasal cannula instead. He slept most of the night but got up frequently to void, when doing so he was disoriented and impulsive and needed multiple attempts at verbal redirection in order to be safe when mobilizing. Twice when ambulating his oxygen saturation dropped to 81% on 6L nasal cannula, placing him back on bipap brought the saturation back up. Early in the shift he was very restless, rolling over in bed multiple times, kicking at the blankets, and thrashing about. PRN xanax and trazodone were administered and he calmed down and slept peacefully until 429. Since then he has been mildly restless, and continues to grunt and moan in his sleep.
[2024-04-28 06:37] LABS: Glucose Point of Care 94 mg/dL (70-110)
[2024-04-28 08:56] LABS: Anion Gap 10.7 (5-19); Blood Urea Nitrogen 32 mg/dL (8-23); Calcium 9.2 mg/dL (8.5-10.5); Carbon Dioxide 38 mmol/L (22-29); Chloride 106 mmol/L (98-107); Creatinine Clr Calc Pharmacy 74.8925; Glucose 95 mg/dL (65-115); Osmolality Calculated 317 mOsm/kg (285-295); Potassium 4.7 mmol/L (3.5-5.1); Sodium 150 mmol/L (136-145)
[2024-04-28] MEDS: fenofibrate 145 mg Tablet PO (09:03)
[2024-04-28] MEDS: pantoprazole DR 40 mg Tablet PO (09:03)
[2024-04-28] MEDS: allopurinol 100 mg Tablet 200 MG PO (09:03)
[2024-04-28] MEDS: metoprolol tartrate 50 mg Tablet 25 MG PO ×2 (09:03→17:34)
[2024-04-28] MEDS: aspirin 81 mg EC Tablet PO (09:04)
[2024-04-28] MEDS: insulin glargine 100 units/1 mL 10 UNIT SUBCUT (09:04)
[2024-04-28] MEDS: methylPREDNISolone sod succ 40 mg/mL INJ IVP (10:49)
[2024-04-28 11:39] LABS: Glucose Point of Care 160 mg/dL (70-110)
[2024-04-28] MEDS: insulin lispro 100 unit/1 mL SUBCUT ×3 (11:42→21:24)
[2024-04-28] MEDS: dextrose 5%-sod chloride 0.45% 1,000 ML 75 ML IV (11:42)
[2024-04-28] MEDS: acetylcysteine 200 mg/mL SDV 4 mL 100 MG INHALATION ×2 (12:38→16:13)
[2024-04-28] MEDS: ipratropium-albuterol 3 mL Neb INHALATION ×3 (12:38→19:58)
[2024-04-28 16:02] LABS: Anion Gap 12.3 (5-19); Blood Urea Nitrogen 33 mg/dL (8-23); Calcium 9.2 mg/dL (8.5-10.5); Carbon Dioxide 36 mmol/L (22-29); Chloride 102 mmol/L (98-107); Creatinine Clr Calc Pharmacy 64.1169; Glomerular Filtration Rate 50.2 mL/min (90-130); Glucose 299 mg/dL (65-115); Osmolality Calculated 318 mOsm/kg (285-295); Potassium 5.3 mmol/L (3.5-5.1); Sodium 145 mmol/L (136-145)
--- NOTE | 2024-04-28 16:38 | PM.TDS ---
Transfer Summary Providers Date of Admission: 04/23/24 15:53 Date of Discharge/Transfer: 04/28/24 Attending Provider at Admission: Caio Nassar MD Attending Provider at Transfer: Caio Nassar MD Primary Care Provider: Yulia Arango Transfer Plans: Anticipated date of transfer: 04/28/24. Receiving Facility: [facility]. Receiving Provider: Dr. Alicia. Diagnoses at Discharge Discharge Diagnosis (1) Acute respiratory failure with hypoxia and hypercapnia: Status: Acute (2) Respiratory failure: Status: Acute (3) Pneumonia: Status: Acute Qualifiers: Laterality: right Lung location: middle lobe of lung (4) Renal dysfunction: Status: Acute (5) HTN (hypertension): Status: Acute (6) Type 2 diabetes mellitus: Status: Acute (7) Obesity: Status: Acute (8) HLD (hyperlipidemia): Status: Acute (9) Carotid artery occlusion: Status: Acute Reason for Visit Reason for Visit sob,weak Brief History: History as per HPI: Sina Ness is a 69 year old male with past medical history of hypertension, hyperlipidemia, type 2 diabetes mellitus, carotid artery stenosis who has not followed up with a physician for quite a while presents to the ER with his spouse today because of worsening difficulty in breathing which has been progressively getting worse over last 6 months. Today patient had gone with her spouse to visit her primary care provider where he seemed very sick and he was advised to present to the ER. As per the spouse at home sometimes patient's oxygen saturations dropped down to 50s. In the ER he was found to have a saturation of 70% on room air and was placed on nasal cannula. Examination patient is laying comfortably in bed with some difficulty in breathing on tunnelization requiring up to 6 L of oxygen to maintain saturation in the high 80s. He denies any chest pain. Complains of difficulty in breathing getting worse on exertion and laying down flat. Denies any history of sleep apnea though he has never been tested. Denies any fever, cough worse than usual, chest pain diarrhea, dysuria, sick contacts. Hospital Course Hospital Course Patient was admitted to the hospital further evaluation and management of acute hypoxic and hypercapnic respiratory failure. He was started on broad-spectrum IV antibiotics with concern for significant right-sided pneumonia/ARDS. He was started on nebulization treatment and IV steroids. During hospitalization patient's renal functions were labile and required fluid resuscitation on and off. His blood sugars were uncontrolled in setting of steroids and were managed with insulin's. His blood sugars have been fairly well-controlled recently. His renal functions have remained stable. Patient has worked very well with aggressive pulmonary toilet with incentive spirometry and chest vest. Unfortunately his oxygen requirements continued to increase with current requirement of 50 L 60% to maintain saturation more than 88%. Given worsening respiratory failure in setting of dense right-sided pneumonia patient most likely needs pulmonary consultation and possible bronchoscopy. Unfortunately citrus fruit packer is not available at our facility. Given the same possibility of transfer were discussed in detail with patient and patient's family who were agreeable to transfer. Patient has been accepted at [facility] by Dr. Alicia. He has been transferred in hemodynamically stable condition on heated high flow for further management. Physical Exam Narrative: General: No acute distress, AO x3, Sick appearing, morbidly obese, on heated high flow HEENT: PERRLA, pupils bilaterally equal and reactive Chest: Bilateral bronchial breath sounds all over lung weldon occasional rhonchi, coarse crackles present all over lung weldon right more than left, lower lobe more than upper lobe CVS: S1-S2 regular, no murmurs, no tachycardia, no gallops, no rubs Abdomen: Soft, nontender, distended, no organomegaly, bowel sounds present Neuro: No focal deficits, no facial deformity, AO x3, power 5/5 in all limbs Resp: COMMON NORMALS: clear to auscultation bilaterally EFFORT & INSPECTION: Yes respiratory distress AUSCULTATION: clear to auscultation bilaterally, crackles and rales TS Data Studies Completed and Pending Pending at discharge Category Date Time Status ABG FULL [Arterial Blood Gas Full] AM LABS Lab 04/29/24 04:00 Ordered Blood Culture Stat Lab 04/23/24 15:36 Results Coccidioides AB CF Serum Routine Lab 04/23/24 21:09 Received Complete Blood Count w/Auto AM LABS Lab 04/29/24 04:00 Ordered Comprehensive Metabolic Panel AM LABS Lab 04/29/24 04:00 Ordered Histoplasma Quantitative AG Routine Lab 04/23/24 17:35 Received Completed Studies During Hospitalization Category Date Time Status CT abdomen pelvis wo con [id number] Routine Cat Scan 04/23/24 17:[address] chest wo con [id number] Stat Cat Scan 04/23/24 15:07 Completed XR chest 1V portable [id number] Routine Exams 04/25/24 14:02 Completed XR chest 1V portable [id number] Routine Exams 04/27/24 10:59 Completed XR chest 1V portable [id number] Stat Exams 04/23/24 14:05 Completed CV carotid duplex BI* [id number] Routine Ultrasound 04/23/24 16:52 Completed CV. echo complete* [id number] Routine Ultrasound 04/23/24 16:24 Completed Laboratory Last Values WBC 8.75 10^3/uL (3.29-11.43) 04/28/24 04:46 RBC 4.11 10^6/uL (3.85-5.65) 04/28/24 04:46 Hgb 12.70 g/dL (11.27-16.99) 04/28/24 04:46 Hct 42.9 % (37-53) 04/28/24 04:46 MCV 104.4 fl (82-101) H 04/28/24 04:46 MCH 30.9 pg (27-33) 04/28/24 04:46 MCHC 29.6 g/dL (30-55) L 04/28/24 04:46 RDW 15.1 % (12.1-15.1) 04/28/24 04:46 Plt Count 255 10^3/cmm (157-399) 04/28/24 04:46 MPV 10.2 fL (7.4-10.4) 04/28/24 04:46 Neut % (Auto) 68.9 % 04/28/24 04:46 Lymph % (Auto) 19.2 % 04/28/24 04:46 Angelina % (Auto) 10.6 % 04/28/24 04:46 Eos % (Auto) 0.1 % 04/28/24 04:46 Baso % (Auto) 0.1 % 04/28/24 04:46 Neut # (Auto) 6.02 10^3/uL (1.8-7.7) 04/28/24 04:46 Lymph # (Auto) 1.7 10^3/uL (0.8-4.8) 04/28/24 04:46 Angelina # (Auto) 0.9 10^3/uL (0.2-0.9) 04/28/24 04:46 Eos # (Auto) 0.0 10^3/uL (0.0-0.8) 04/28/24 04:46 Baso # (Auto) 0.0 10^3/uL (0.0-0.1) 04/28/24 04:46 Nucleated RBC % (auto) 0 % 04/28/24 04:46 Nucleated RBCs # 0.0 /100WBC 04/28/24 04:46 D-Dimer 1.33 ug/mLFEU (0-0.59) H 04/23/24 14:27 Specimen Type Arterial 04/27/24 10:28 Sample Site Radial, right 04/27/24 10:28 ABG pH 7.31 (7.35-7.45) L 04/27/24 10:28 ABG pCO2 69.2 mmHg (35-45) H* 04/27/24 10:28 ABG pO2 61.9 mmHg (80.0-100.0) L 04/27/24 10:28 ABG PO2/FiO2 Ratio 137 04/27/24 10:28 ABG HCO3 35.0 mmol/L (22-26) H 04/27/24 10:28 ABG O2 Saturation 90.3 04/27/24 10:28 ABG Base Excess 6.4 mmol/L (-2.0-2.0) H 04/27/24 10:28 Khalif Test Pos 04/27/24 10:28 A-a O2 Gradient 23.5 mmHg (5-10) H 04/27/24 10:28 Hematocrit 41.8 % (42-52) L 04/27/24 10:28 Hgb O2 Saturation 88.9 % (95-100) L 04/27/24 10:28 Carboxyhemoglobin 1.2 %THgb (0.4-20.1) 04/27/24 10:28 Methemoglobin 0.4 % (0.4-1.5) 04/27/24 10:28 Total Hemoglobin 13.6 g/dL (14-18) L 04/27/24 10:28 Sodium 147.0 mmol/L (131-143) H 04/27/24 10:28 Potassium 4.9 mmol/L (3.5-5.0) 04/27/24 10:28 Glucose 140.0 mg/dL (70-115) H 04/27/24 10:28 Ionized Calcium 1.3 mmol/L (1.1-1.4) 04/27/24 10:28 O2 Delivery Device Nc 04/27/24 10:28 O2 Liters/Min 6.0 % 04/27/24 10:28 FiO2 45.0 % 04/27/24 10:28 Nurse Practitioner Physician Assistant ID Myah 04/27/24 10:28 Sodium 145 mmol/L (136-145) 04/28/24 15:35 Potassium 5.3 mmol/L (3.5-5.1) H 04/28/24 15:35 Chloride 102 mmol/L (98-107) 04/28/24 15:35 Carbon Dioxide 36 mmol/L (22-29) H 04/28/24 15:35 Anion Gap 12.3 (5-19) 04/28/24 15:35 BUN 33 mg/dL (8-23) H 04/28/24 15:35 Creatinine 1.4 mg/dL (0.7-1.2) H 04/28/24 15:35 GFR Calculation 50.2 mL/min (90-130) L 04/28/24 15:35 Glucose 299 mg/dL (65-115) H 04/28/24 15:35 POC Glucose 160 mg/dL (70-110) H 04/28/24 11:03 Estimat Average Glucose 163 04/24/24 05:07 Hemoglobin A1c 7.3 % (4.0-6.0) H 04/24/24 05:07 Calculated Osmolality 318 mOsm/kg (285-295) H 04/28/24 15:35 Lactic Acid 1.1 mmol/L (0.5-2.2) 04/23/24 14:55 Calcium 9.2 mg/dL (8.5-10.5) 04/28/24 15:35 Phosphorus 4.6 mg/dL (2.5-4.5) H 04/24/24 05:07 Magnesium 1.7 mg/dL (1.7-2.3) 04/24/24 05:07 Iron 37 ug/dL (59-158) L 04/23/24 14:27 TIBC 205 mcg/dl 04/23/24 14:27 % Saturation 18.0 % (20-50) L 04/23/24 14:27 Unsat Iron Binding 168 ug/dL (112-347) 04/23/24 14:27 Total Bilirubin 0.4 mg/dL (0.15-1.2) 04/28/24 04:46 AST 11 U/L (0-40) 04/28/24 04:46 ALT 17 U/L (0-41) 04/28/24 04:46 Alkaline Phosphatase 40 U/L (40-130) 04/28/24 04:46 Lactate Dehydrogenase 257 U/L (135-225) H 04/23/24 17:16 Troponin T Baseline 60 ng/L (0-15) H 04/23/24 14:27 Troponin T 120 Minute 57.13 ng/L (0-15) H 04/23/24 16:15 Delta Troponin T -2.87 ABS# (0-10) L 04/23/24 16:15 Troponin T Hi Sens 6Hr 44.67 ng/L (0-15) H 04/23/24 21:09 Troponin T Hi Sens 6Hr Delta -15.33 ng/L (0-12) L 04/23/24 21:09 NT-Pro-B Natriuret Pep 1474 pg/mL (0-125) H 04/27/24 05:14 Total Protein 5.2 g/dL (6.6-8.7) L 04/28/24 04:46 Albumin 3.4 g/dL (3.5-5.2) L 04/28/24 04:46 Globulin 1.8 g/dL (1.3-4.6) 04/28/24 04:46 Triglycerides 166 mg/dL (0-150) H 04/24/24 05:07 Cholesterol 147 mg/dL (0-200) 04/24/24 05:07 LDL Cholesterol, Calc 88 mg/dL (50-129) 04/24/24 05:07 HDL Cholesterol 26 mg/dL (60-100) L 04/24/24 05:07 LDL/HDL Ratio 3.38 RATIO (0.00-3.22) H 04/24/24 05:07 Cholesterol/HDL Ratio 5.65 mg/dL (1.0-5.00) H 04/24/24 05:07 Vitamin B12 487 pg/mL (232-1245) 04/23/24 14:27 Folate 13.4 ng/mL (4.5-32.2) 04/24/24 05:07 Procalcitonin 0.07 ng/mL (0-0.5) 04/27/24 05:14 TSH 1.99 uIU/mL (0.27-4.20) 04/23/24 14:27 Urine Color Yellow (Yellow) 04/23/24 17:35 Urine Appearance Turbid (CLEAR) A 04/23/24 17:35 Urine pH 5.0 (5-7) 04/23/24 17:35 Ur Specific [place] 1.014 (1.005-1.030) 04/23/24 17:35 Urine Protein 1+ (Negative) A 04/23/24 17:35 Urine Glucose (UA) Negative (Normal) 04/23/24 17:35 Urine Ketones Negative (Negative) 04/23/24 17:35 Urine Blood Negative (Negative) 04/23/24 17:35 Urine Nitrate Negative (Negative) 04/23/24 17:35 Urine Bilirubin Negative (Negative) 04/23/24 17:35 Urine Urobilinogen 1.0 mg/dL (Negative) 04/23/24 17:35 Ur Leukocyte Esterase Negative (Negative) 04/23/24 17:35 Urine RBC 0-2 /hpf (0-2) 04/23/24 17:35 Urine WBC 0-5 /hpf (0-5) 04/23/24 17:35 Ur Squamous Epith Cells 0-5 /hpf (0-5) 04/23/24 17:35 Amorphous Sediment 4+ /hpf 04/23/24 17:35 Urine Bacteria 2+ /hpf (NONE) H 04/23/24 17:35 Hyaline Casts 9.51 /lpf 04/23/24 17:35 Ur Random Sodium 12 mmol/L 04/23/24 17:35 Ur Random Potassium 28 mmol/L 04/23/24 17:35 Ur Random Chloride < 10 mmol/L 04/23/24 17:35 Urine Creatinine 148 mg/dL (39-259) 04/23/24 17:35 Nasal MRSA (PCR) Not detected (Negative) 04/23/24 18:44 Adenovirus (PCR) Not detected (NOT DETECT) 04/23/24 16:22 C. pneumoniae DNA (PCR) Not detected (NOT DETECT) 04/23/24 16:22 Coronavirus (PCR) Negative (Negative) 04/23/24 16:22 Coronavirus 229E (PCR) Not detected (NOT DETECT) 04/23/24 16:22 Human Metapneumovir PCR Not detected (NOT DETECT) 04/23/24 16:22 Influenza A (H1) PCR Not detected (NOT DETECT) 04/23/24 16:22 Influenza A (PCR) Negative (Negative) 04/23/24 16:22 Influ A (H1/09) PCR Not detected (NOT DETECT) 04/23/24 16:22 Influenza A (H3) PCR Not detected (NOT DETECT) 04/23/24 16:22 Influenza Type A (PCR) Not detected (NOT DETECT) 04/23/24 16:22 Influenza Type B (PCR) Negative (Negative) 04/23/24 16:22 Influenza Type B (PCR) Not detected (NOT DETECT) 04/23/24 16:22 M. pneumoniae (PCR) Not detected (NOT DETECT) 04/23/24 16:22 Parainfluenza 1 (PCR) Not detected (NOT DETECT) 04/23/24 16:22 Parainfluenza 2 (PCR) Not detected (NOT DETECT) 04/23/24 16:22 Parainfluenza 3 (PCR) Not detected (NOT DETECT) 04/23/24 16:22 Parainfluenza 4 (PCR) Not detected (NOT DETECT) 04/23/24 16:22 RSV (PCR) Negative (Negative) 04/23/24 16:22 RSV Type A (PCR) Not detected (NOT DETECT) 04/23/24 16:22 RSV Type B (PCR) Not detected (NOT DETECT) 04/23/24 16:22 Entero/Rhino (PCR) Not detected (NOT DETECT) 04/23/24 16:22 SARS-CoV-2 (PCR) Not detected (NOT DETECT) 04/23/24 16:22 Beta-(1,3)-D-Glucan <31 pg/ml 04/23/24 21:09 B-(1,3)-D-Glucan Intrp Negative (Negative) 04/23/24 21:[address] 04/23/24 15:07 IMPRESSION: 1. Multi lobar pneumonia. Most extensive pulmonary opacification and pneumonia is in the RIGHT upper lobe. Pneumonia continues into a portion of the RIGHT lower lobe with a few areas of scattered opacifications throughout the LEFT lung. Most consistent with pneumonia. Consider aspiration pneumonia. 2. Single subcarinal lymph node at 1.8 cm. The remaining lymph nodes are normal. This may be a reactive lymph node. 3. Mild cardiomegaly. Abdomen/Pelvis CT 04/23/24 17:49 IMPRESSION: 1. Negative for acute inflammatory process in the abdomen or pelvis. 2. Bibasilar right greater than left pneumonic infiltrates. 3. Emphysematous changes. 4. Cardiomegaly. 5. Right kidney probable subcentimeter proteinaceous cyst, series 2, image 46, consider correlation with ultrasound to confirm suspected cystic nature. 6. Diverticulosis without diverticulitis. 7. Chronic bilateral L5 pars articularis defects. 8. Small omental fat containing hernia. 9. Left adrenal 19 mm low-density nodule likely reflecting a benign adenoma. COMMENTS: 1. Consistent with the [employer]'s Incidental Findings Committee white paper (J Am Sola Radiol 2018): Any incidental renal lesion less than 1 cm or classified as too small to characterize, or any incidental cystic renal lesion characterized as simple-appearing, is likely benign. No follow-up imaging is recommended for these lesions per consensus recommendations based on imaging criteria. 2. Consistent with the [employer]'s Incidental Findings Committee white paper (J Am Sola Radiol 2017): For any incidental adrenal lesion greater than or equal to 1 cm but less than or equal to 4 cm classified in this report as benign, likely benign, or containing fat (including classification as an adenoma or myelolipoma), no follow-up imaging is recommended per consensus recommendations based on imaging criteria. Further lab evaluation could be pursued if warranted based on clinical findings. Chest X-Ray 04/27/24 10:59 IMPRESSION: Stable chest. Microbiology 04/23/24 15:36 Blood Blood Culture - Final NO GROWTH AFTER 5 DAYS 04/24/24 06:30 Sputum - Expectorated Sputum Gram Stain - Final 04/24/24 06:30 Sputum - Expectorated Sputum Sputum Culture - Final 04/23/24 14:59 Blood Blood Culture - Preliminary NEGATIVE TO DATE 04/23/24 17:35 Urine Kidney Bacterial Antigens - Final Echocardiogram: CONCLUSIONS Normal left ventricular size and systolic function, EF 63% . No regional wall motion abnormalities. Grade II/IV diastolic dysfunction, moderately elevated filling pressures. Mild biatrial enlargementTrace mitral valve regurgitation. Thickened aortic valve. Trace tricuspid valve regurgitation. Estimated pulmonary artery peak systolic pressure 29 mmHg There is no pericardial effusion. There are no intracardiac masses. Compared to the study from 07/19/2016, there may not be significant change. Dr Mae Barrett MD [facility] (Electronically Signed) Final Date: 23 April 2024 21:19 Recent Clincial Data Last Vital Signs Temp 98.5 F 04/28/24 11:42 Pulse 68 04/28/24 16:12 Resp 18 04/28/24 16:10 BP 144/91 04/28/24 11:42 Pulse Ox 93 04/28/24 16:12 O2 Del Method Heated High Flow 04/28/24 16:10 O2 Flow Rate 50 04/28/24 16:12 FiO2 85 04/28/24 16:12 Vital Signs Temp Pulse Pulse Resp BP Pulse Ox Pulse Ox 04/28/24 16:12 68 93 04/28/24 16:10 68 18 93 04/28/24 13:53 88 92 04/28/24 12:49 79 04/28/24 12:38 80 18 92 04/28/24 11:42 98.5 F 70 15 144/91 91 04/28/24 09:11 81 16 90 04/28/24 07:58 98.4 F 98 14 142/78 90 04/28/24 07:38 04/28/24 05:14 24 H 92 O2 Del Method O2 Flow Rate O2 Flow Rate FiO2 FiO2 FiO2 04/28/24 16:12 50 85 80 04/28/24 16:10 Heated High Flow 50 80 04/28/24 13:53 50 85 04/28/24 12:49 04/28/24 12:38 Nasal Cannula 6 04/28/24 11:42 BiPAP 04/28/24 09:11 Nasal Cannula 5 04/28/24 07:58 Nasal Cannula 04/28/24 07:38 6 04/28/24 05:14 Intake & Output/Weight 04/26/24 04/27/24 04/28/24 04/29/24 06:59 06:59 06:59 06:59 Intake Total 3710.00 / 3710.00 2756.25 / 2756.25 1420.000 / 1420.000 290 / 290 Output Total 700 / 700 500 / 500 Balance 3710.00 / 3710.00 6. / 920.000 / 920.000 290 / 290 Weight 121.835 kg 121.563 kg 118.342 kg 118.07 kg Vitals Last Vital Signs Temp 98.5 F 04/28/24 11:42 Pulse 68 04/28/24 16:12 Resp 18 04/28/24 16:10 BP 144/91 04/28/24 11:42 Pulse Ox 93 04/28/24 16:12 O2 Del Method Heated High Flow 04/28/24 16:10 O2 Flow Rate 50 04/28/24 16:12 FiO2 85 04/28/24 16:12 TS Medications Medications Acetaminophen (Acetaminophen 325 Mg Tablet) 650 mg PO Q6H PRN PRN Reason: Mild/Mod Pain Or Temp >/= 101 Last Admin: 04/25/24 17:15 Dose: 650 mg Acetylcysteine (Acetylcysteine 200 Mg/Ml Sdv 4 Ml) 100 mg INHALATION QID.RESPIRATORY JULY Last Admin: 04/28/24 16:13 Dose: 100 mg Albuterol/Ipratropium (Ipratropium-Albuterol 3 Ml Neb) 3 ml INHALATION QID.RESPIRATORY JULY Last Admin: 04/28/24 16:13 Dose: 3 ml Allopurinol (Allopurinol 100 Mg Tablet) 200 mg PO DAILY JULY Last Admin: 04/28/24 09:03 Dose: 200 mg Alprazolam (Alprazolam 0.5 Mg Tablet) 0.5 mg PO TID PRN PRN Reason: ANXIETY Last Admin: 04/27/24 23:22 Dose: 0.5 mg Amlodipine Besylate (Amlodipine 10 Mg Tablet) 10 mg PO DAILY JULY Last Admin: 04/24/24 08:02 Dose: 10 mg Aspirin (Aspirin 81 Mg Ec Tablet) 81 mg PO DAILY JULY Last Admin: 04/28/24 09:04 Dose: 81 mg Atorvastatin Calcium (Atorvastatin 40 Mg Tablet) 40 mg PO QPM JULY Last Admin: 04/27/24 17:38 Dose: 40 mg Bisacodyl (Bisacodyl 5 Mg Tablet) 10 mg PO DAILY PRN; Protocol PRN Reason: Constipation (see protocol) Budesonide (Budesonide 0.5 Mg/2 Ml Neb) 0.5 mg INHALATION BID.RESPIRATORY JULY Last Admin: 04/28/24 09:12 Dose: Not Given Fenofibrate (Fenofibrate 145 Mg Tablet) 145 mg PO DAILY [facility] Last Admin: 04/28/24 09:03 Dose: 145 mg Glucagon (Glucagon 1 Mg/Ml Kit 1 Ml) 1 mg IM ONCE PRN; Protocol PRN Reason: Adult Acute Hypoglycemia Nursing Prot. Piperacillin Sod/Tazobactam (Sod 3.375 gm/ Sodium Chloride) 50 mls @ 12.5 mls/hr IV Q8H [facility] Last Admin: 04/28/24 12:30 Dose: 12.5 mls/hr Dextrose (D5w) 500 mls @ 0 mls/hr IV ONCE PRN; Protocol PRN Reason: Adult Acute Hypoglycemia Prot Dextrose (D10w) 125 mls @ 750 mls/hr IV PRN PRN; Protocol PRN Reason: Adult Acute Hypoglycemia Nursing Protocol Dextrose (D10w) 250 mls @ 1,000 mls/hr IV PRN PRN; Protocol PRN Reason: Adult Acute Hypoglycemia Nursing Protocol Dextrose/Sodium Chloride (Dextrose 5%-Sod Chloride 0.45%) 1,000 mls @ 75 mls/hr IV .[id number] [facility] Stop: 04/29/24 00:49 Last Admin: 04/28/24 11:42 Dose: 75 mls/hr Insulin Glargine (Insulin Glargine 100 Units/1 Ml) 10 unit SUBCUT QAM [facility] Insulin Human Lispro (Insulin Lispro 100 Unit/1 Ml) 0 unit SUBCUT WM&BEDTIME [facility]; Protocol Last Admin: 04/28/24 11:42 Dose: 2 unit Lactulose (Lactulose Oral Liq 20 Gm/30 Ml Udc) 10 gm PO DAILY PRN; Protocol PRN Reason: Constipation (see protocol) Linezolid (Linezolid 600 Mg Tablet) 600 mg PO Q12H [facility]; Protocol Last Admin: 04/28/24 13:30 Dose: 600 mg Magnesium Hydroxide (Magnesium Hydroxide 30 Ml Udc) 30 ml PO DAILY PRN; Protocol PRN Reason: Constipation (see protocol) Metoprolol Tartrate (Metoprolol Tartrate 50 Mg Tablet) 25 mg PO BIDWM [facility] Last Admin: 04/28/24 09:03 Dose: 25 mg Morphine Sulfate (Morphine 4 Mg/Ml Sdv 1 Ml) 2 mg IVP Q4H PRN PRN Reason: SEVERE PAIN Last Admin: 04/28/24 05:14 Dose: 2 mg Ondansetron HCl (Ondansetron 2 Mg/Ml Sdv 2 Ml) 4 mg IVP Q8H PRN PRN Reason: vomiting, or N/V if npo Pantoprazole Sodium (Pantoprazole Dr 40 Mg Tablet) 40 mg PO DAILY JULY Last Admin: 04/28/24 09:03 Dose: 40 mg Prednisone (Prednisone 20 Mg Tablet) 40 mg PO DAILY JULY Trazodone HCl (Trazodone 50 Mg Tablet) 50 mg PO BEDTIME PRN PRN Reason: INSOMNIA Last Admin: 04/27/24 23:22 Dose: 50 mg Discontinued Medications Acetylcysteine (Acetylcysteine 200 Mg/Ml Mdv 10 Ml) 100 mg INHALATION Q4H.RESPIRATORY JULY Last Admin: 04/25/24 08:57 Dose: 100 mg Acetylcysteine (Acetylcysteine 200 Mg/Ml Mdv 10 Ml) 100 mg INHALATION Q6H.RESP JULY Last Admin: 04/27/24 13:05 Dose: 100 mg Albuterol/Ipratropium (Ipratropium-Albuterol 3 Ml Neb) 3 ml INHALATION ONCE ONE Stop: 04/23/24 14:42 Last Admin: 04/23/24 15:00 Dose: 3 ml Albuterol/Ipratropium (Ipratropium-Albuterol 3 Ml Neb) 3 ml INHALATION Q6H.RESP JULY Last Admin: 04/27/24 13:05 Dose: 3 ml Azithromycin (Azithromycin 250 Mg Tablet) 500 mg PO DAILY JULY; Protocol Stop: 04/26/24 11:19 Last Admin: 04/26/24 08:53 Dose: 500 mg Budesonide (Budesonide 0.5 Mg/2 Ml Neb) 0.5 mg INHALATION BID JULY Ceftriaxone Sodium (Ceftriaxone 2,000 Mg Sdv) 2,000 mg IVP ONCE ONE; Protocol Stop: 04/23/24 14:42 Last Admin: 04/23/24 14:59 Dose: 2,000 mg Ceftriaxone Sodium (Ceftriaxone 1,000 Mg Sdv) 1,000 mg IVP Q24H JULY; Protocol Last Admin: 04/23/24 17:56 Dose: Not Given Furosemide (Furosemide 10 Mg/Ml Sdv 4ml) 40 mg IVP ONCE ONE Stop: 04/27/24 10:50 Last Admin: 04/27/24 14:10 Dose: 40 mg Azithromycin 500 mg/ Sodium (Chloride) 250 mls @ 250 mls/hr IV ONCE ONE; Protocol Stop: 04/23/24 15:40 Last Infusion: 04/23/24 17:56 Dose: Infused Sodium Chloride (Sodium Chloride 0.9%) 1,000 mls @ 75 mls/hr IV .[id number] [facility] Last Admin: 04/23/24 17:56 Dose: Not Given Sodium Chloride (Sodium Chloride 0.9%) 1,000 mls @ 75 mls/hr IV .[id number] [facility] Last Infusion: 04/26/24 15:09 Dose: Infused Sodium Chloride (Sodium Chloride 0.9%) 500 mls @ 999 mls/hr IV .Q31M ONE Stop: 04/25/24 10:04 Last Infusion: 04/25/24 13:35 Dose: Infused Insulin Glargine (Insulin Glargine 100 Units/1 Ml) 10 unit SUBCUT BEDTIME [facility] Last Admin: 04/25/24 20:56 Dose: 10 unit Insulin Glargine (Insulin Glargine 100 Units/1 Ml) 10 unit SUBCUT BID [facility] Last Admin: 04/28/24 09:04 Dose: 10 unit Magnesium Oxide (Magnesium Oxide 400 Mg Tablet) 800 mg PO ONCE ONE Stop: 04/23/24 15:37 Last Admin: 04/23/24 16:16 Dose: 800 mg Methylprednisolone Sodium Succinate (Methylprednisolone Sod Succ 125 Mg/2 Ml Inj) 80 mg IVP ONCE ONE Stop: 04/23/24 14:44 Last Admin: 04/23/24 14:59 Dose: 80 mg Methylprednisolone Sodium Succinate (Methylprednisolone Sod Succ 40 Mg/Ml Inj) 40 mg IVP Q8H [facility] Last Admin: 04/26/24 08:53 Dose: 40 mg Methylprednisolone Sodium Succinate (Methylprednisolone Sod Succ 40 Mg/Ml Inj) 40 mg IVP DAILY [facility] Last Admin: 04/28/24 10:49 Dose: 40 mg Pantoprazole Sodium (Pantoprazole 40 Mg Sdv) 40 mg IVP Q24H [facility] Last Admin: 04/26/24 16:57 Dose: 40 mg Allergies No Known Allergies Allergy (Verified 04/23/24 14:35) Home Medications acetaminophen 325 mg tablet (Tylenol) 650 mg PO QID PRN Pain 04/23/24 [History Confirmed 04/23/24] albuterol sulfate 90 mcg/actuation aerosol inhaler See Rx Instructions .Route .COMPLEX 04/23/24 [History Confirmed 04/23/24] allopurinol 100 mg tablet 200 mg PO DAILY 04/23/24 [History Confirmed 04/23/24] amlodipine 10 mg tablet 10 mg PO DAILY 04/23/24 [History Confirmed 04/23/24] aspirin 81 mg tablet,delayed release (Lola Low Dose Aspirin) 81 mg PO DAILY 04/23/24 [History Confirmed 04/23/24] atorvastatin 40 mg tablet 40 mg PO QPM 04/23/24 [History Confirmed 04/23/24] fenofibrate nanocrystallized 145 mg tablet 145 mg PO DAILY 04/23/24 [History Confirmed 04/23/24] losartan 100 mg tablet 100 mg PO DAILY 04/23/24 [History Confirmed 04/23/24] metoprolol tartrate 50 mg tablet 25 mg PO BIDWM 04/23/24 [History Confirmed 04/23/24] nitroglycerin 0.4 mg sublingual tablet See Rx Instructions .Route .COMPLEX 04/23/24 [History Confirmed 04/23/24] pioglitazone 30 mg tablet 30 mg PO DAILY 04/23/24 [History Confirmed 04/23/24] Discharge Plan Discharge Patient Disposition: Xfer Short-Term Hosp Condition: Stable Prescriptions: No Action atorvastatin 40 mg tablet 40 mg PO QPM allopurinol 100 mg tablet 200 mg PO DAILY amlodipine 10 mg tablet 10 mg PO DAILY metoprolol tartrate 50 mg tablet 25 mg PO BIDWM nitroglycerin 0.4 mg tablet, sublingual See Rx Instructions .ROUTE .COMPLEX Rx Instructions: DISSOLVE ONE TABLET UNDER THE TONGUE EVERY 5 MINUTES NEEDED FOR CHEST PAIN. DO NOT EXCEED A TOTAL OF 3 DOSES IN 15 MINUTES albuterol sulfate 90 mcg/actuation HFA aerosol inhaler See Rx Instructions .ROUTE .COMPLEX Rx Instructions: take 2 puff by mouth every 4 to 6 hours as needed for shortness of breath pioglitazone 30 mg tablet 30 mg PO DAILY losartan 100 mg tablet 100 mg PO DAILY fenofibrate nanocrystallized 145 mg tablet 145 mg PO DAILY acetaminophen [Tylenol] 325 mg Tablet 650 mg PO QID PRN (Reason: Pain) aspirin [Lola Low Dose Aspirin] 81 mg Tablet,Delayed Release (Dr/Ec) 81 mg PO DAILY Discharge Orders: Transfer Out of Facility (Order); Ordered 04/28/24 Ordered By: Caio Nassar Referrals: Yulia Arango PA-C [Primary Care Provider] - Discharge Diet: Cardiac and Diabetic Discharge Activity: Resume usual activity and Increase activity as tolerated Patient Instructions: Opioid Safety Transfer Attestations Time Spent in Transfer Care: greater than 30 min Specific Discharge Activities: educating patient, educating and/or supporting family/caregiver, discussing with pcp/other providers, discussing with case management assistant/social workers/dc planners, documenting/other paperwork and evaluating patient/reviewing data Status at Transfer: Cognitive status at transfer: mildly impaired cognition; Behavioral status at transfer: cooperative and can be uncooperative; Functional status at transfer: independent ambulation; Overall status at transfer: patient is not back to baseline Quality Metrics Clinical Quality Measures [ No reported AMI, CVA or VTE this stay] Coding Level of Care Code 16839 Total time (in minutes) for Discharge: 70 Diagnoses Acute respiratory failure with hypoxia and hypercapnia J96.01; J96.02 Respiratory failure J96.90 Pneumonia J18.9 Laterality: right Lung location: middle lobe of lung Renal dysfunction N28.9 HTN (hypertension) I10 Type 2 diabetes mellitus E11.9 Obesity E66.9 HLD (hyperlipidemia) E78.5 Carotid artery occlusion I65.29
[2024-04-28 16:41] LABS: Glucose Point of Care 371 mg/dL (70-110)
[2024-04-28] MEDS: atorvastatin 40 mg Tablet PO (17:34)
[2024-04-28] MEDS: ALPRAZolam 0.5 mg Tablet PO (17:34)
[2024-04-28] MEDS: budesonide 0.5 mg/2 mL Neb INHALATION (19:58)
[2024-04-28 20:02] LABS: Glucose Point of Care 295 mg/dL (70-110)
[2024-04-28] MEDS: FUROsemide 10 mg/mL SDV 10mL 60 MG IVP (21:17)
--- NOTE | 2024-04-28 22:11 | PC.NURSE ---
EMS here with BLS truck at 1925 to [facility] pick[facility] patient for transport to [facility]. Patient left with discharge packet and belongings.
== END 2024-04-28 21:25 | disposition short-term general hospital (02) | DRG 193 ==
LOC: ER 15:06 → MEDSURG 15:53
PROVIDERS: Admitting Provider Student in an Organized Health Care Education/Training Program; Emergency Provider Emergency Medicine; PCP Physician Assistant; Visit Provider Student in an Organized Health Care Education/Training Program
DX: J18.9 Pneumonia, unspecified organism (principal); J80 Acute respiratory distress syndrome; J44.0 Chronic obstructive pulmonary disease with (acute) lower respiratory infection; N17.9 Acute kidney failure, unspecified; I13.0 Hypertensive heart and chronic kidney disease with heart failure and stage 1 through stage 4 chronic kidney disease, or unspecified chronic kidney disease; I50.30 Unspecified diastolic (congestive) heart failure; E78.5 Hyperlipidemia, unspecified; I65.29 Occlusion and stenosis of unspecified carotid artery; E66.01 Morbid (severe) obesity due to excess calories; G47.33 Obstructive sleep apnea (adult) (pediatric); E11.22 Type 2 diabetes mellitus with diabetic chronic kidney disease; N18.9 Chronic kidney disease, unspecified; Z66 Do not resuscitate; Z79.82 Long term (current) use of aspirin; Z79.51 Long term (current) use of inhaled steroids; Z68.37 Body mass index [BMI] 37.0-37.9, adult
CPT/HCPCS: 0241U; 36415; 36416; 36600; 71045; 71250; 74176; 80048; 80051; 80053; 80061; 81001; 82330; 82436; 82570; 82607; 82746; 82805; 82962; 83036; 83540; 83550; 83605; 83615; 83735; 83880; 84100; 84133; 84145; 84300; 84443; 84484; 85025; 85378; 86403; 86635; 87040; 87070; 87205; 87385; 87449; 87486; 87581; 87633; 92523; 92610; 93005; 93306; 93880; 94640; 94660; 94669; 94762; 96365; 96372; 96375; 99285; J0456; J0696; J1815; J1940; J2270; J2470; J2543; J2919; J7030; J7040; J7050; J7608; J7626; J7799; Q0144